=== PATIENT | female | born 1955 | race Caucasian/White ===

== ENCOUNTER 2018-09-17 02:20 | Outpatient (CLI) | payer OTHER, SELFPAY ==
--- NOTE | 2018-09-17 07:55 | DI.MAMMO_ITS ---
SYMPTOM/DIAGNOSIS: SCREENING, Z12.31 MAMMOGRAMS: Mammograms were interpreted according to the usual protocol including computer analysis with CAD system, tomosynthesis and C view imaging. The breasts are of moderate density. The examination is compared with previous examinations including 08/2016. There is a new irregular mass of the upper outer quadrant of the right breast with architectural distortion. There are new associated numerous pleamorphic microcalcifications including branching forms. The findings as described are highly suspicious for a new breast carcinoma, not present on previous examination of 08/2016. Additional mammographic views requested to include CC and MLO views of this area. Breast ultrasound requested as well. No other significant change in appearance of either breast. CONCLUSION: Findings highly suspicious for upper outer quadrant breast carcinoma of the right breast. Additional mammographic views and breast ultrasound requested for further characterization and to assess feasibility of ultrasound guided biopsy. Category 0. Breast density, Category B. MQSA ASSESSMENT OF FINDINGS: Incomplete: Needs additional imaging evaluation. Category 0. Patient will receive a letter notifying them of these results. BI-RADS category B. There are scattered areas of fibroglandular density.
--- NOTE | 2018-09-17 14:01 | DI.COMBO_ITS ---
SYMPTOMS/DIAGNOSIS: F/U ABNORMAL MAMMO, NEW AREA OF IRREGULARITY, ? MASS ADDITIONAL MAMMOGRAPHIC VIEWS, RIGHT BREAST, AND RIGHT BREAST ULTRASOUND: Additional images are interpreted according to the usual protocol including tomosynthesis and 2D imaging. Additional mammographic views of the right breast and right breast ultrasound are interpreted in conjunction. These examinations were obtained to evaluate suspicious mass at the upper outer quadrant of the right breast seen on today's mammogram. Additional mammographic views confirm a spiculated heterogeneous mass with multiple suspicious microcalcifications. Breast ultrasound shows a 23 mm in greatest diameter heterogeneous poorly defined mass with some posterior acoustic shadowing. Multiple calcifications are visible in the mass. There is mildly increased intralesional vascular flow. CONCLUSION: Findings highly suspicious for breast carcinoma as described above. Biopsy requested for confirmation, which may be obtained ultrasonographically. Category 5, breast density category B. MQSA ASSESSMENT OF FINDINGS: Highly suspicious of malignancy. Biopsy should be obtained. Category 5. Patient will receive a letter notifying them of these results. BI-RADS category B. There are scattered areas of fibroglandular density.
== END 2018-09-17 02:40 ==
PROVIDERS: PCP Family Medicine; Visit Provider Family Medicine
DX: Z12.31 Encounter for screening mammogram for malignant neoplasm of breast (principal); R92.8 Other abnormal and inconclusive findings on diagnostic imaging of breast
CPT/HCPCS: 76642; 77063; 77067

== ENCOUNTER 2018-12-24 01:47 | Outpatient (CLI) | payer OTHER, SELFPAY ==
[2018-12-24 07:28] LABS: Abs Immature Grans 0.03 k/cumm (0.0-0.09); Absolute Basophil Count 0.01 k/cumm (0.0-0.2); Absolute Lymphocyte Count 0.09 k/cumm (1.2-3.4); Absolute Monocyte Count 0.02 k/cumm (0.11-0.7); Basophils % 5.3; Immature Grans % 15.8; Lymphocytes % 47.4; Mean Corp. HGB Concentration 34.4 g/dL (32.0-36.0); Mean Corpuscular Hemoglobin 31.4 pg (27.0-33.0); Mean Corpuscular Volume 91.4 fL (80-95); Mean Platelet Volume 9.6 fL (8.0-11.0); Monocytes % 10.5; RBC Distribution Width 13.5 % (11.7-14.6)
[2018-12-24 09:37] LABS: Absolute Neutrophil Count 0.04 k/cumm (1.2-6.7); HCT 19.2 % (36.0-46.0); HGB 6.6 g/dL (12.0-15.5)
[2018-12-24 09:40] LABS: Anisocytosis 2+; Hypochromasia 2+; Microcytosis 1+; Platelet Count 84 x1000/uL (130-400)
[2018-12-24 09:41] LABS: Poikilocytes 2+
[2018-12-24 09:42] LABS: White Blood Cell Count 0.19 k/cumm (4.4-10.8)
== END 2018-12-24 02:07 ==
PROVIDERS: PCP Family Medicine; Visit Provider Internal Medicine Medical Oncology
DX: C50.911 Malignant neoplasm of unspecified site of right female breast (principal); Z17.0 Estrogen receptor positive status [ER+]
CPT/HCPCS: 36415; 85025

== ENCOUNTER 2019-08-19 03:14 | Outpatient (CLI) | payer OTHER, SELFPAY ==
[2019-08-19 13:49] LABS: Absolute Basophil Count 0.01 k/cumm (0.0-0.2); Absolute Eosinophil Count 0.09 k/cumm (0.0-0.7); Absolute Lymphocyte Count 0.55 k/cumm (1.2-3.4); Absolute Monocyte Count 0.34 k/cumm (0.11-0.7); Absolute Neutrophil Count 3.25 k/cumm (1.2-6.7); Basophils % 0.2; Eosinophils % 2.1; HCT 36.5 % (36.0-46.0); HGB 12.6 g/dL (12.0-15.5); Mean Corp. HGB Concentration 34.5 g/dL (32.0-36.0); Mean Corpuscular Volume 98.4 fL (80-95); Neutrophils % 76.7; Platelet Count 172 x1000/uL (130-400); RBC 3.71 m/cumm (4.00-5.20); RBC Distribution Width 13.3 % (11.7-14.6); White Blood Cell Count 4.24 k/cumm (4.4-10.8)
[2019-08-19 14:33] LABS: ALT 21 U/L (14-59); AST 20 U/L (15-37); Albumin 3.9 g/dL (3.4-5.0); Alkaline Phosphatase 97 U/L (46-116); Anion Gap 9.7 mmol/L (3-11); BUN 12 mg/dL (7-18); CO2 26.3 mmol/L (21.0-32.0); CREATININE 0.81 mg/dL (0.55-1.02); Calcium 9.4 mg/dL (8.5-10.1); Chloride 104 mmol/L (98-107); Glucose 117 mg/dL (74-106); Potassium 3.7 mmol/L (3.5-5.1); Sodium 140 mmol/L (136-145); Total Protein 6.4 g/dL (6.4-8.2)
== END 2019-08-19 03:34 ==
PROVIDERS: PCP Family Medicine; Visit Provider Internal Medicine Medical Oncology
DX: C50.411 Malignant neoplasm of upper-outer quadrant of right female breast (principal); Z17.0 Estrogen receptor positive status [ER+]
CPT/HCPCS: 36415; 80053; 85025

== ENCOUNTER 2020-03-12 12:57 | Outpatient (RCR) | payer OTHER, SELFPAY ==
[2020-03-12] MEDS: Denosumab 60 MG/ML SYR SC (14:28)
== END 2020-04-08 23:59 | disposition home or self-care (01) ==
LOC: INF 12:57
PROVIDERS: PCP Family Medicine; Visit Provider Internal Medicine
DX: M81.8 Other osteoporosis without current pathological fracture (principal); Z79.811 Long term (current) use of aromatase inhibitors
CPT/HCPCS: 96372; J0897

== ENCOUNTER 2020-06-28 03:18 | Outpatient (CLI) | payer OTHER, SELFPAY ==
[2020-06-28 09:05] LABS: Abs Immature Grans 0.01 10^3/uL (0.0-0.06); Absolute Basophil Count 0.02 10^3/uL (0.0-0.2); Absolute Eosinophil Count 0.06 10^3/uL (0.0-0.7); Absolute Lymphocyte Count 0.83 10^3/uL (1.2-3.4); Absolute Monocyte Count 0.32 10^3/uL (0.1-0.8); Absolute Neutrophil Count 3.12 10^3/uL (1.2-6.7); Basophils % 0.5; Eosinophils % 1.4; HCT 38.2 % (36.0-46.0); Immature Grans % 0.2; MCH 33.5 pg (27.0-33.0); MCV 98.5 fL (80-95); MPV 10.2 fL (8.0-11.0); Monocytes % 7.3; Neutrophils % 71.6; Nucleated RBC 0 %; Platelet Count 148 10^3/uL (130-400); RBC 3.88 10^6/uL (3.93-5.22); RDW 13.3 % (11.7-14.6); RDW-SD 48.7 fL; WBC 4.36 10^3/uL (4.4-10.8)
[2020-06-28 09:17] LABS: ALT 25 U/L (14-59); AST 23 U/L (15-37); Albumin 3.8 g/dL (3.4-5.0); Alkaline Phosphatase 60 U/L (46-116); Anion Gap 6.2 mmol/L (3-11); BUN 10 mg/dL (7-18); Bilirubin, Total 1.1 mg/dL (0.2-1.0); CO2 28.8 mmol/L (21.0-32.0); CREATININE 0.8 mg/dL (0.55-1.02); Calcium 8.9 mg/dL (8.5-10.1); Chloride 107 mmol/L (98-107); Glucose 110 mg/dL (74-106); Potassium 3.9 mmol/L (3.5-5.1); Sodium 142 mmol/L (136-145); Total Protein 6.7 g/dL (6.4-8.2)
== END 2020-06-28 03:19 | disposition home or self-care (01) ==
LOC: LBO 03:19
PROVIDERS: PCP Family Medicine; Visit Provider Internal Medicine Medical Oncology
DX: C50.411 Malignant neoplasm of upper-outer quadrant of right female breast (principal); Z17.0 Estrogen receptor positive status [ER+]; R53.82 Chronic fatigue, unspecified
CPT/HCPCS: 36415; 80053; 85025

== ENCOUNTER 2020-09-26 11:00 | Outpatient (RCR) | payer OTHER, SELFPAY ==
[2020-09-26] MEDS: Denosumab 60 MG/ML SYR SC (14:23)
== END 2020-10-09 23:59 | disposition home or self-care (01) ==
LOC: INF 11:00
PROVIDERS: PCP Family Medicine; Visit Provider Internal Medicine
DX: M81.0 Age-related osteoporosis without current pathological fracture (principal)
CPT/HCPCS: 96372; J0897

== ENCOUNTER 2020-11-03 07:26 | Emergency (ER) | payer OTHER, SELFPAY ==
[2020-11-03] VITALS (44 sets, daily range): BP systolic 125–179; BP diastolic 56–119; PULSE 55–74; RESP 10–24; TEMP 36.3; O2SAT 98–100
--- NOTE | 2020-11-03 07:15 | RT.EKG_ITS ---
APPROVED REPORT Exam: Resting ECG Reason for Exam: ekg Patient Location: E HR:66 bpm ECG Measurements Heart Rate 66 AXIS MD 171 P 60 QRSd 87 QRS 42 QT 417 T 41 QTc 437 Conclusion Sinus rhythm...normal P axis, V-rate 60- 99 Probable left atrial enlargement...P >50mS, <-0.10mV V1. Sinus. No STEMI. I have reviewed and interpreted ECG and agree with software generated interpretation.
--- NOTE | 2020-11-03 07:45 | DI.RAD_ITS ---
Exam(s) XR CHEST 2V PA LATERAL EXAM: XR CHEST 2V PA LATERAL CLINICAL HISTORY: CP. TECHNIQUE: 2D digital imaging was performed. COMPARISON: No exams were available for comparison FINDINGS: Heart size is normal. The mediastinum is not widened. Lungs are clear. No infiltrates nor pleural effusions. IMPRESSION: No acute pulmonary findings. DATA REPOSITORY: RADIATION DOSE DELIVERED:
--- NOTE | 2020-11-03 07:51 | ED.GENADUL_ITS ---
Discharge Plan Disposition Patient Disposition: HOME Condition: Stable Discharge Details Clinical Impression: Chest pain, Thickening of skin of breast Primary Care Provider: Griselda Mojica ED Provider: Pratima Dhaliwal Home Meds and New Rx's Prescriptions: Continued omeprazole 20 MG capsule,delayed release(DR/EC) 20 mg PO PRN RF: 0 letrozole 2.5 mg tablet 2.5 mg PO DAILY RF: 0 Discharge Instructions Instructions: Chest Pain (ED) Additional Instructions: Your imaging and labs are reassuring here today. Your history and exam is most concerning for a muscular cause of your discomfort. Please encourage hydration please encourage deep breathing. Please avoid heavy lifting as may cause increased discomfort. Encourage ambulation. May also try topical options such as lidocaine or Salonpas patches or heat/ice. Please follow-up with your primary care in 1 week for reevaluation As we discussed, there is concerning findings on your CT scan for possible recurrence of your breast cancer. Alternatively, this may be to your previous radiation. Please follow-up with your oncology team Thursday to discuss findings and keep your upcoming mammogram appointment. If you develop increased pain, shortness of breath, inability stay hydrated or other new/worsening symptoms care urgently once again. Referrals: Griselda Mojica MD [Primary Care Provider] - Discharge Data Discharge Date/Time-TO BE ENTERED AT DEPARTURE: 11/03/20 12:45 Medical Decision Making The patient is a pleasant 55-year-old female, accompanied by her , with chief complaint of chest pain. She reports the pain began when stretching this morning. States that she was turned towards the left with her arm extended back stretching her chest when she had a sudden onset of chest pain that radiates into her back pain. Pain has been present since with deep inspiration, coughing and moving. Denies any nausea or vomiting. Patient reports that she is has not had pain like this historically. She is typically very active, states that she did have a lot of heavy lifting yesterday at work. For that she had no pain with her physical exertion yesterday. Denies feeling short of breath aside from having some discomfort with the deep inspiration. This limits her ability to feel like she is taking a deep breath. No history of DVT. No personal family history of aortic disease. On exam, patient appears uncomfortable with movement. Her vital signs are stable and she is oxygenating 100%. She is 2+ distal pulses in all extremities. Abdomen is benign. She does have some discomfort over the left anterior chest wall. Lungs are clear. No pain elicited with muscular stress of the left-sided chest wall. Patient discussed differential. With the sudden onset of discomfort radiating into her back, I am concerned for aortic dissection. She is hemodynamically stable at this time. Plan for CTA. Her history is more consistent with PE although is soft, differential. Patient's primarily concern for ACS. However, I do find this less likely. Will screen caution. She does not have any infectious symptoms nor does this sound to be esophageal mediated. CTA reviewed by radiologist: FINDINGS: Pulmonary arteries: No evidence of pulmonary embolus to the segmental level. Aorta: No aneurysm of the aorta. No dissection of the aorta. Lungs: Unremarkable. No consolidation. No masses. Pleural spaces: Mild pleural thickening in the right upper lobe. Series 4, image 21 and adjacent images. This could represent metastatic disease.. Heart: Unremarkable. No cardiomegaly. No pericardial effusion. Mediastinal space: Moderate hiatal hernia Lymph nodes: Unremarkable. No enlarged lymph nodes. Bones/joints: Unremarkable. No acute fracture. Soft tissues: Asymmetric skin thickening in the right breast. Increased soft tissue densities in the right breast. Recommend further evaluation to rule out right breast carcinoma. IMPRESSION: 1. Asymmetric skin thickening in the right breast. Increased soft tissue densities in the right breast. Recommend further evaluation to rule out right breast carcinoma. 2. No evidence of pulmonary embolus to the segmental level. 3. Mild pleural thickening in the right upper lobe. Series 4, image 21 and adjacent images. This could represent metastatic disease.. Labs reviewed. No leukocytosis. Stable H&H. No significant abnormality on CMP. Troponin within normal limits. I discussed the findings with the patient. She reports that she is routinely followed by her oncology and general surgery team. Is scheduled to have a mammogram in 2 weeks. However, she will message them through her my [facility] portal. I did advise that she follow-up as soon as possible for this concerning finding. Patient has had chemotherapy as well as radiation to this area, questioning if some of this could be radiation mediated as she has had normal exams recently. Repeat troponin remains less than 0.05. Patient I discussed likely differential of musculoskeletal source. Encourage hydration. Encourage deep breathing, will give an incentive spirometer. Advised that she may try topical options including heat/ice or topical patch to help with pain. Strict return precautions were discussed. She will follow-up regarding the question of me tastatic disease with her oncology team. Imaging was pushed [place], [place]. [place], [place] [facility] [place]vised f/u with PCP in one week. All of her questions and concerns were addressed and she is in agreement with this plan. HPI General Mode of arrival: ambulatory . Date/Time Provider Initiated Documentation: 11/03/20 07:51 . Limitations to Documentation: no limitations . Information obtained by: patient, family () and RN notes reviewed . History of Present Illness 65 year old F presents to the emergency department with the chief complaint of chest pain, described as moderate, with intensity rated at 1 (no pain at rest, increases with SOB, coughing). Quality is described as aching, and is localized to the chest. Patient reports radiation to back. Patient started experiencing this hour(s) (1) and it has been constant. Immobilization improves symptom(s), Movement worsens symptoms (cough, deep breathing) . Patient notes chest pain, cough (began with the sensation in her chest) and shortness of breath (feels like she cant get a deep breath); denies fever/chills, headaches, nausea/vomiting, rash, syncope and weakness. Patient did receive the following treatments prior to arrival, none Related Data Home Medications Medication Instructions Recorded Confirmed omeprazole 20 mg PO PRN 11/17/16 12/03/16 letrozole 2.5 mg PO DAILY 11/03/20 11/03/20 Allergies Allergy/AdvReac Type Severity Reaction Status Date / Time No Known Allergies Allergy Unverified 11/03/20 07:31 General Stated Complaint: Chest Pain SUDHEER: 2 Review of Systems Constitutional Constitutional: Reports as per HPI, Denies chills, Denies fever(s), Denies headache(s), Denies lethargy and Denies poor appetite Eyes Eyes: Denies change in vision ENT Ears, Nose, Mouth, and Throat: Denies dizziness and Denies headache(s) Cardiovascular Cardiovascular: Reports as per HPI, Denies dyspnea and Denies dyspnea on exertion Respiratory Respiratory: Reports as per HPI, Denies chest congestion, Denies cough, Denies pain on inspiration, Denies pain with cough, Denies dyspnea, Denies dyspnea on exertion and Denies wheezing Gastrointestinal Gastrointestinal: Reports as per HPI, Denies abdominal pain, Denies diarrhea, Denies nausea and Denies vomiting Musculoskeletal Musculoskeletal: Reports as per HPI and Denies back pain Integumentary/Breasts Skin/Breast: Reports as per HPI and Denies rash Neurologic Neurologic: Reports as per HPI, Denies dizziness and Denies headache(s) Allergic/Immunologic Allergic/Immunologic: Denies wheezing [facility] Medical History (Updated 11/03/20 @ 11:50 by ANANYA Spencer) Basal cell carcinoma, face Gastroesophageal reflux disease Obesity Osteopenia Perforated ear drum Surgical History Colonoscopy - MAC (12/03/16) Hysterectomy, Laparoscopic Supracervical Social History (Updated 12/24/17 @ 16:19 by Lawanda Nguyen NP) Smoking/Tobacco Use Status: Former Tobacco Use Smoking risk assessment performed?: Yes Alcohol Intake: current Alcohol Intake frequency: 0-2 drinks per day Alcohol type: hard liquor Drug use: Never Substance use type: does not use Household members: spouse 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 What type of physical activity do you participate in: walking Frequency: daily Do you feel safe at home: Yes Do you feel safe in your relationship?: Yes Exam Const General: cooperative, healthy appearing, uncomfortable (uncomfortable with movement), no acute distress and well developed Nutritional Appearance: average body habitus and well nourished Orientation: alert, awake and oriented x3 HENMT Head: normal to inspection Ears: hearing grossly normal bilaterally Mouth: moist mucous membranes Chest Chest: normal inspection of the chest, normal palpation of entire chest wall, no crepitus and tenderness (left anterior chest wall) Resp Effort & Inspection: normal respiratory effort, able to speak in complete sentences and no respiratory distress Auscultation: clear to auscultation bilaterally, no rales, no rhonchi and no wheezes Cardio Rate: regular rate Rhythm: regular rhythm Heart Sounds: S1 normal and S2 normal GI Inspection: normal to inspection, no edema and non-distended Palpation: soft, no hepatosplenomegaly, not firm, no guarding, not rigid and nontender Auscultation: normal bowel sounds Skin General skin exam: no rashes or lesions noted Trauma: no lacerations or abrasions Neuro General: patient alert, patient awake and patient oriented x3 Cognition: normal cognition Speech: speech normal Gait: normal gait Extrem General: normal to inspection, capillary refill normal, no pedal edema, no calf tenderness, normal gait and other (2+ distal pulses in all extremities) Psych Appearance: grossly normal and well kempt Mental Status: mental status grossly normal Speech and Movement: speech and movement normal Course Vital Signs Vital signs: Vital Signs Temperature 36.3 C L 11/03/20 07:29 Pulse 74 11/03/20 07:29 Respiratory Rate 18 11/03/20 07:29 Blood Pressure 179/77 H 11/03/20 07:29 Pulse Oximetry 100 11/03/20 07:29 Temperature 36.3 C L 11/03/20 07:29 Temperature Source Temporal Artery Scan 11/03/20 07:29 Pulse 74 11/03/20 07:29 Respiratory Rate 18 11/03/20 07:33 Respiratory Effort Non-Labored 11/03/20 07:33 Respiratory Depth Normal 11/03/20 07:33 Respiratory Pattern Normal 11/03/20 07:33 Blood Pressure 179/77 H 11/03/20 07:29 Blood Pressure Position Sitting 11/03/20 07:29 Pulse Oximetry 100 11/03/20 07:29 Oxygen Delivery Method Room Air 11/03/20 07:29 Oxygen Flow Rate 0 11/03/20 07:29 Pain Level 0 11/03/20 07:29
[2020-11-03 08:15] LABS: Abs Immature Grans 0.01 10^3/uL (0.0-0.06); Absolute Basophil Count 0.02 10^3/uL (0.0-0.2); Absolute Eosinophil Count 0.08 10^3/uL (0.0-0.7); Absolute Lymphocyte Count 0.93 10^3/uL (1.2-3.4); Absolute Monocyte Count 0.35 10^3/uL (0.1-0.8); Absolute Neutrophil Count 2.31 10^3/uL (1.2-6.7); Basophils % 0.5; Eosinophils % 2.2; HCT 41.7 % (36.0-46.0); Immature Grans % 0.3; Lymphocytes % 25.1; MCH 33.7 pg (27.0-33.0); MCHC 33.6 % (32.0-36.0); MCV 100.5 fL (80-95); MPV 10.3 fL (8.0-11.0); Monocytes % 9.5; Neutrophils % 62.4; Nucleated RBC 0 %; Platelet Count 163 10^3/uL (130-400); RBC 4.15 10^6/uL (3.93-5.22); RDW 12.4 % (11.7-14.6); RDW-SD 46.9 fL
[2020-11-03 08:27] LABS: ALT 27 U/L (14-59); AST 24 U/L (15-37); Alkaline Phosphatase 65 U/L (46-116); Anion Gap 7.2 mmol/L (3-11); BUN 12 mg/dL (7-18); CO2 27.8 mmol/L (21.0-32.0); CREATININE 0.8 mg/dL (0.55-1.02); Calcium 8.8 mg/dL (8.5-10.1); Chloride 107 mmol/L (98-107); Glucose 105 mg/dL (74-106); Magnesium 2.1 mg/dL (1.8-2.4); Potassium 4.1 mmol/L (3.5-5.1); Sodium 142 mmol/L (136-145); Total Protein 7.2 g/dL (6.4-8.2)
[2020-11-03 08:28] LABS: Troponin I < 0.05 ng/mL (<0.06)
--- NOTE | 2020-11-03 08:33 | DI.CT_ITS ---
Exam(s) CT THORAX ABDOMEN CTA EXAM: CT THORAX ABDOMEN CTA CLINICAL HISTORY: CP radiating into back. TECHNIQUE: Imaging Protocol: Axial computed tomography images with coronal and sagittal reformatted images were created and reviewed CONTRAST MATERIAL: Intravenous: Omnipaque 350 Contrast volume:100 ml Oral: None COMPARISON: No exams were available for comparison FINDINGS: CHEST: Findings in the right breast with asymmetric density and skin thickening which may be postsurgical an d post radiation LUNGS: There is subpleural density anterior segment right upper lobe which is probably related to rad iation therapy. There is a small 4 millimeter nodule posteriorly in the right upper lobe which is pr obably a benign granuloma. No other focal right lung findings nor significant left lung findings and no pleural effusions on either side. No significant findings in trachea and mainstem bronchi.. MEDIASTINUM: There is no hilar nor mediastinal adenopathy. Visualized thyroid unremarkable.Prominent hiatal hernia. CARDIAC: Heart size is normal. There is no pericardial effusion. AORTA: Caliber of the thoracic aorta is within normal limits.There is no evidence of aortic dissectio n. ABDOMEN: There is no evidence of abdominal aortic aneurysm nor dissection.There is no aneurysmal dilatation of the common iliac arteries.The celiac and superior mesenteric arteries are patent. There is no ascites. LIVER: Multiple hypodensities are seen in the liver which have the appearance of cysts. The largest of these measures 4 x 3 cm adjacent to the gallbladder fossa GALLBLADDER/BILIARY: No obvious gallbladder pathology. CBD is not dilated. PANCREAS: No evidence of pancreatic mass nor dilatation of the pancreatic duct. SPLEEN: Spleen is not enlarged. There are no intrasplenic lesions. Splenic and portal veins are roberson nt. ADRENALS: There are no significant adrenal masses. KIDNEYS: No cysts evident. No calculi nor hydronephrosis. No solid renal masses. ABDOMINAL AORTA: The abdominal aorta is not enlarged. LYMPH NODES: There is no retroperitoneal nor para-aortic adenopathy. No obvious mesenteric masses. ABDOMINAL WALL: No evidence of significant anterior abdominal wall hernia. GI: There is no evidence of bowel obstruction, free air, nor abscess. PELVIS: The pelvis was not scanned IMPRESSION: 1. Appearance of the right breast is most probably postsurgical for malignancy and post radiation and findings in the subpleural anterior segment right upper lobe are most probably post radiation change s. There also appears to be a small benign granuloma in the right upper lobe. No ominous pulmonary nodules and no pleural effusions nor intrathoracic adenopathy. 2. Multiple cysts in the liver. These are doubtful for metastatic disease. The largest of these cys ts measures 4.3 cm, this being adjacent to the gallbladder fossa. 3. No mesenteric masses. No ascites. RADIATION DOSE DELIVERED: 625.29mGy.cm Total DLP DATA REPOSITORY: All CT scans at this facility are submitted to the National Radiology Data Registry (NRDR) Dose Index Registry (DIR) with the [employer] (ACR). RADIATION OPTIMIZATION: All CT scans at this facility use at least one of these dose optimization te chniques: automated exposure control; mA and/or kV adjustment per patient size (includes targeted exa ms where dose is matched to clinical indication); or iterative reconstruction.
[2020-11-03] MEDS: Omnipaque 350 MG/ML 100 ML BTL IJ (08:44)
--- NOTE | 2020-11-03 09:36 | DI.VRAD_ITS ---
PROCEDURE INFORMATION: Exam: XR Chest Exam date and time: 11/03/2020 8:48 AM Age: 65 years old Clinical indication: Other: Cp TECHNIQUE: Imaging protocol: XR of the chest. Views: 2 views. COMPARISON: CT THORAX ABDOMEN CTA 11/03/2020 8:22 AM FINDINGS: Lungs: Unremarkable. No consolidation. Pleural spaces: Unremarkable. No pleural effusion. No pneumothorax. Heart/Mediastinum: Unremarkable. No cardiomegaly. Bones/joints: Unremarkable. IMPRESSION: No acute findings. Dictated and Authenticated by: Frank Coleman MD. Ordering:SABINE Andujar MD
--- NOTE | 2020-11-03 09:36 | DI.VRAD_ITS ---
PROCEDURE INFORMATION: Exam: CTA Chest With Contrast Exam date and time: 11/03/2020 8:06 AM Age: 65 years old Clinical indication: Other: Chest pain radiating to back; Prior surgery; Surgery type: Right breast lumpectomy TECHNIQUE: Imaging protocol: Computed tomographic angiography of the chest with contrast. 3D rendering (Not supervised by radiologist): MIP and/or 3D reconstructed images were created by the technologist. Radiation optimization: All CT scans at this facility use at least one of these dose optimization techniques: automated exposure control; mA and/or kV adjustment per patient size (includes targeted exams where dose is matched to clinical indication); or iterative reconstruction. Contrast material: [id number]; Contrast volume: 99 ml; Contrast route: INTRAVENOUS (IV); COMPARISON: No relevant prior studies available. FINDINGS: Pulmonary arteries: No evidence of pulmonary embolus to the segmental level. Aorta: No aneurysm of the aorta. No dissection of the aorta. Lungs: Unremarkable. No consolidation. No masses. Pleural spaces: Mild pleural thickening in the right upper lobe. Series 4, image 21 and adjacent images. This could represent metastatic disease.. Heart: Unremarkable. No cardiomegaly. No pericardial effusion. Mediastinal space: Moderate hiatal hernia Lymph nodes: Unremarkable. No enlarged lymph nodes. Bones/joints: Unremarkable. No acute fracture. Soft tissues: Asymmetric skin thickening in the right breast. Increased soft tissue densities in the right breast. Recommend further evaluation to rule out right breast carcinoma. IMPRESSION: 1. Asymmetric skin thickening in the right breast. Increased soft tissue densities in the right breast. Recommend further evaluation to rule out right breast carcinoma. 2. No evidence of pulmonary embolus to the segmental level. 3. Mild pleural thickening in the right upper lobe. Series 4, image 21 and adjacent images. This could represent metastatic disease.. THIS REPORT CONTAINS FINDINGS THAT MAY BE CRITICAL TO PATIENT CARE. The findings were verbally communicated via telephone conference with YEN GRIFFIN at 9:35 AM EDT on 11/03/2020. The findings were acknowledged and understood. She states the patient has had right breast cancer in the past PROCEDURE INFORMATION: Exam: CT Angiography Abdomen With Contrast Exam date and time: 11/03/2020 8:06 AM Age: 65 years old Clinical indication: Other: Chest pain radiating to back; Prior surgery; Surgery type: Right breast lumpectomy TECHNIQUE: Imaging protocol: Computed tomographic angiography images of the abdomen with intravenous contrast material. 3D rendering (Not supervised by radiologist): MIP and/or 3D reconstructed images were created by the technologist. Radiation optimization: All CT scans at this facility use at least one of these dose optimization techniques: automated exposure control; mA and/or kV adjustment per patient size (includes targeted exams where dose is matched to clinical indication); or iterative reconstruction. Contrast material: [id number]; Contrast volume: 99 ml; Contrast route: INTRAVENOUS (IV); COMPARISON: No relevant prior studies available. FINDINGS: Aorta: No aneurysm of the aorta. No dissection of the aorta. Celiac trunk and mesenteric arteries: No occlusion or significant stenosis. Renal arteries: No occlusion or significant stenosis. Liver: Multiple low-attenuation areas in the liver. Larger ones are consistent with simple cysts Gallbladder and bile ducts: Normal. No calcified stones. No ductal dilation. Pancreas: Normal. No ductal dilation. Spleen: Normal. No splenomegaly. Adrenals: Normal. No mass. Kidneys and ureters: Normal. No hydronephrosis. Stomach and bowel: Unremarkable. No obstruction. No mucosal thickening. Lymph nodes: Unremarkable. No enlarged lymph nodes. Intraperitoneal space: Unremarkable. No free air. No significant fluid collection. Bones/joints: Unremarkable. No acute fracture. No dislocation. Soft tissues: Unremarkable. IMPRESSION: 1. No aneurysm of the aorta. 2. No dissection of the aorta. Dictated and Authenticated by: Frank Coleman MD. Ordering:SABINE Andujar MD
[2020-11-03 11:19] LABS: Troponin I < 0.05 ng/mL (<0.06)
== END 2020-11-03 12:45 | disposition home or self-care (01) ==
PROVIDERS: Emergency Provider Physician Assistant; PCP Family Medicine
DX: R07.9 Chest pain, unspecified (principal); R92.8 Other abnormal and inconclusive findings on diagnostic imaging of breast; M54.9 Dorsalgia, unspecified
CPT/HCPCS: 36415; 71275; 74175; 80053; 93005; 99285; 71046; 83735; 84484; 85025; 93010; 99284; J3490

== ENCOUNTER 2021-03-28 01:26 | Outpatient (RCR) | payer OTHER, SELFPAY ==
[2021-03-28] MEDS: Denosumab 60 MG/ML SYR SC (14:02)
== END 2021-04-08 23:59 | disposition home or self-care (01) ==
LOC: INF 01:26
PROVIDERS: PCP Family Medicine; Visit Provider Internal Medicine
DX: M81.0 Age-related osteoporosis without current pathological fracture (principal)
CPT/HCPCS: 96372; J0897

== ENCOUNTER 2021-09-26 02:59 | Outpatient (RCR) | payer OTHER, SELFPAY ==
[2021-09-26 14:24] LABS: ALT 26 U/L (14-59); AST 22 U/L (15-37); Albumin 3.9 g/dL (3.4-5.0); Alkaline Phosphatase 63 U/L (46-116); Anion Gap 7.5 mmol/L (3-11); BUN 12 mg/dL (7-18); Bilirubin, Total 0.8 mg/dL (0.2-1.0); CO2 29.5 mmol/L (21.0-32.0); CREATININE 0.8 mg/dL (0.55-1.02); Calcium 9.2 mg/dL (8.5-10.1); Chloride 105 mmol/L (98-107); Glucose 132 mg/dL (74-106); Potassium 3.5 mmol/L (3.5-5.1); Sodium 142 mmol/L (136-145); Total Protein 6.8 g/dL (6.4-8.2)
[2021-09-26] MEDS: Denosumab 60 MG/ML SYR SC (14:30)
== END 2021-10-09 23:59 | disposition home or self-care (01) ==
LOC: INF 02:59
PROVIDERS: PCP Family Medicine; Visit Provider Internal Medicine
DX: C50.411 Malignant neoplasm of upper-outer quadrant of right female breast (principal); Z17.0 Estrogen receptor positive status [ER+]; M81.0 Age-related osteoporosis without current pathological fracture
CPT/HCPCS: 36415; 80053; 96372; J0897

== ENCOUNTER 2021-10-25 09:49 | Outpatient (REF) | payer OTHER, SELFPAY ==
[2021-10-25 13:19] LABS: HCT 39.9 % (36.0-46.0); HGB 13.8 g/dL (11.2-15.7); MCH 33.3 pg (27.0-33.0); MCHC 34.6 % (32.0-36.0); MCV 96 fL (80-95); Platelet Count 166 10^3/uL (130-400); RBC 4.14 10^6/uL (3.93-5.22); RDW 12.4 % (11.7-14.6); RDW-SD 43.9 fL; WBC 3.46 10^3/uL (4.4-10.8)
[2021-10-25 13:53] LABS: Calculated LDL 125 mg/dL (<100); Cholesterol 232 mg/dL (<200); HDL Cholesterol 92 mg/dL (40-60); TSH (W/Ref FT4) 3.68 uIU/mL (0.36-3.74); Triglyceride 75 mg/dL (<150); Vitamin B12 491 pg/mL (193-986)
[2021-10-28 05:26] LABS: Vitamin D 25 Total 47.6 ng/mL (30-100)
[2021-10-28 09:30] LABS: HIV-1/2 Ag & Ab Screen Negative (Negative)
== END 2021-10-25 09:50 | disposition home or self-care (01) ==
LOC: NCHCN 09:49
PROVIDERS: PCP Family Medicine; Visit Provider Family Medicine
DX: R53.83 Other fatigue (principal); R63.5 Abnormal weight gain; M81.0 Age-related osteoporosis without current pathological fracture; Z13.220 Encounter for screening for lipoid disorders; Z11.4 Encounter for screening for human immunodeficiency virus [HIV]
CPT/HCPCS: 80061; 82306; 85027; 87389; 82607; 83036; 84443

== ENCOUNTER 2022-03-27 01:21 | Outpatient (RCR) | payer OTHER, SELFPAY ==
[2022-03-27 14:23] LABS: ALT 26 U/L (14-59); AST 24 U/L (15-37); Albumin 3.9 g/dL (3.4-5.0); Alkaline Phosphatase 71 U/L (46-116); Anion Gap 6.7 mmol/L (3-11); BUN 14 mg/dL (7-18); Bilirubin, Total 0.8 mg/dL (0.2-1.0); CO2 29.3 mmol/L (21.0-32.0); CREATININE 0.9 mg/dL (0.55-1.02); Calcium 9.3 mg/dL (8.5-10.1); Chloride 104 mmol/L (98-107); Estimated GFR 70.95 (mL/min/1.73m2); Glucose 120 mg/dL (74-106); Potassium 4.2 mmol/L (3.5-5.1); Sodium 140 mmol/L (136-145); Total Protein 6.8 g/dL (6.4-8.2)
[2022-03-27] MEDS: Denosumab 60 MG/ML SYR SC (14:32)
== END 2022-04-08 23:59 | disposition home or self-care (01) ==
LOC: INF 01:21
PROVIDERS: Internal Medicine; PCP Family Medicine; Visit Provider Internal Medicine
DX: M81.0 Age-related osteoporosis without current pathological fracture (principal)
CPT/HCPCS: 36415; 80053; 96372; J0897

== ENCOUNTER 2022-10-15 03:26 | Outpatient (RCR) | payer OTHER, SELFPAY ==
[2022-10-15] MEDS: Calcium Carbonate *TUMS* 500 MG CHEW PO (13:10)
[2022-10-15] MEDS: Normal Saline Flush 10 ML SYR IVP (13:12)
== END 2022-11-08 23:59 | disposition home or self-care (01) ==
LOC: INF 03:26
PROVIDERS: PCP Family Medicine; Visit Provider Nurse Practitioner Acute Care
DX: M81.0 Age-related osteoporosis without current pathological fracture (principal)
CPT/HCPCS: 96365; J3489

== ENCOUNTER 2022-12-16 18:16 | Outpatient (REF) | payer OTHER, SELFPAY ==
[2022-12-16 16:28] LABS: TSH (W/Ref FT4) 4.12 uIU/mL (0.36-3.74); Vitamin B12 908 pg/mL (193-986)
[2022-12-16 16:32] LABS: Folate > 20.0 ng/mL (8.6-20.0)
[2022-12-16 16:57] LABS: FREE T4 0.99 ng/dL (0.76-1.46); NT-proBNP 474 pg/mL (<300)
== END 2022-12-16 18:17 | disposition home or self-care (01) ==
LOC: NCHCN 18:16
PROVIDERS: PCP Family Medicine; Visit Provider Family Medicine
DX: G62.0 Drug-induced polyneuropathy (principal); R41.3 Other amnesia; R53.83 Other fatigue
CPT/HCPCS: 82607; 82746; 83880; 84439; 84443

== ENCOUNTER → 2023-01-07 02:39 | Outpatient (CLI) | payer OTHER, SELFPAY ==
--- NOTE | 2023-01-07 13:47 | DI.US_ITS ---
APPROVED REPORT EXAM: Comprehensive 2D, Doppler, and color-flow Echocardiogram Patient Location: Out-Patient Sound Art Instructor: Lizbeth Forbes RDCS (AE) Indications: Dyspnea on exertion, palpitations, s/p chemo fro breast cancer Other Information Study Quality: Good Conclusion Normal left ventricular wall thickness and chamber size. Ejection fraction is 60%. Wall motion is n ormal diastolic function is normal for age Normal right ventricular size and systolic function Both atria are normal in size There is no structural or hemodynamically significant valvular disease Estimated right ventricular systolic pressure is 27 mmHg Wall motion Left Ventricle The left ventricle is normal size. The left ventricular systolic function is normal. The left ventric ular ejection fraction is within the normal range. There is normal left ventricular wall thickness. T here is normal LV segmental wall motion. There is no ventricular septal defect visualized. LVEF is 6 0%. Right Ventricle The right ventricle is normal size. The right ventricular systolic function is normal. Atria The left atrium size is normal. The right atrium size is normal. The interatrial septum is intact wit h no evidence for an atrial septal defect. Aortic Valve The aortic valve is normal in structure. Aortic valve is trileaflet. There is no aortic valvular jessica nosis. No aortic regurgitation is present. Mitral Valve The mitral valve is normal in structure. No evidence of mitral valve stenosis. Trace mitral regurgita tion. Tricuspid Valve The tricuspid valve is normal in structure. There is no tricuspid valve stenosis. Trace tricuspid reg urgitation. The RVSP is 27.0_ mmHg. Pulmonic Valve The pulmonary valve is normal in structure. There is no pulmonic valvular stenosis. Trace pulmonic re gurgitation. Great Vessels The aortic root is normal in size. The ascending aorta is normal in size. IVC is normal in size and c ollapses >50% with inspiration. Pericardium There is no pericardial effusion. 2D Dimensions IVSD d PLAX 0.89 cm F: 0.6-1.0 Ao Root d 2.56 cm F: 2.7 - 3.3 LVPW d PLAX 0.90 cm F: 0.6 - 1.0 Ao Asc Diam d 3.09 cm F: 2.3 - 3.1 LVID d PLAX 4.47 cm F: 3.8 - 5.2 LVDs 2.98 cm F: 2.2 - 3.5 LV EF Teichholz 62.1 % FS 33.27 % LV EDV (Teich) 90.8 mL LV ESV (Teich) 34.4 mL M-Mode TAPSE 2.62 cm (M/F) >1.7 Auto EF LV EDV A4C 100.4 mL LV EDV A2C 122.2 mL LV EDV BP 109.2 mL LV ESV A4C 42.2 mL LV ESV A2C 51.3 mL LV ESV BP 46.2 mL LVEF(%) A4C 57.9 % LVEF(%) A2C 58.0 % LVEF(%) BP 57.6 % LV SV A4C 58.1 ml LV SV A2C 70.9 ml LV SV BP 62.9 ml LV CO A4C 3.6 L/min LV CO A2C 4.5 L/min LV CO BP 4.0 L/min HR A4C 61.44 BPM HR A2C 63.84 BPM LV EDV Index (BP) LV Strain Long Pk Overal Avg (s) 20.50 RV Strain Global Peak Long. Strain A4C 12.95 Global Peak Long. Strain A4C FW 12.02 LA Volume LA Length A4C 4.3 cm LA Length A2C 5.2 cm LA Area A4C s 13.77 cm2 LA Area A2C s 17.81 cm2 LA Vol A4C A-L 37.40 mL LA Vol A2C A-L 51.31 mL LA Vol Biplane A-L 48.4 mL LA Vol/BSA A4C A-L LA Vol/BSA A2C A-L LA Vol/BSA BP A-L 27.6 mL/m2 LA Vol A4C MOD 35.9 mL LA Vol A2C MOD 46.7 mL LA Vol BP MOD 45.0 mL RA Volume RA Area A4C 7.3 cm2 RA ESV A4C (A-L) 12.9mL RA Vol/BSA A4C A-L RA Length A4C 3.5 cm RA ESV A4C (MOD) 12.7mL LV Diastology MV E' medial 0.108 (>0.07 m/s) MV E Vmax 0.86 (0.4-1.3 m/s) MV E/E' MED 7.96 (<14) MV A Vmax 0.90 (0.4-1.3 m/s) MV E' lateral 0.117 (>0.1 m/s) E/A Ratio 1.0 MV E/E' LAT 7.35 (<14) MV E' Average 0.112 m/s MV E/E'(average) 7.64 Aortic Valve AoV Vmax 1.75 m/s LVOT Vmax 1.37 m/s AoV Peak Grad 12.2 mmHg LVOT Peak Grad 7.5 mmHg AoV Area (Vmax) 2.19 cm2 LVOT VTI 0.306 m AoV VTI 0.399 m LVOT Mean Grad 4.2 mmHg AoV Mean Vinicius. 1.22 m/s LVOT SV 85.38 mL AoV Mean Grad 6.7 mmHg LVOT Diam s 1.85 cm AoV Area (VTI) 2.14 cm2 Velocity Ratio 0.78 Mitral Valve MV DT 210 (160-240 msec) MV Vmax TIPS 0.96 m/s MV Mean Grad 1.8 (<2mmHg) MV VTI 0.315 m Pulmonary Valve PV Vmax 1.09 (0.5-1.5 m/s) RVOT Vmax 0.79 m/s PV Peak Grad 4.7 mmHg RVOT Peak Gr. 2.5 mmHg PV Mean Vinicius 0.82 m/s RVOT VTI 0.183 m PV Mean Grad 2.9 mmHg RVOT Mean Gr. 1.3 mmHg Tricuspid Valve RA Pressure 3.00 mmHg TR Vmax 2.45 m/s TV S' 0.14 m/s TR Peak Grad 23.9 mmHg RVSP (TR) 27.0 mmHg
== END ==
PROVIDERS: PCP Family Medicine; Visit Provider Family Medicine
DX: R06.09 Other forms of dyspnea (principal); R00.2 Palpitations
CPT/HCPCS: 93306

== ENCOUNTER 2023-01-29 02:47 | Outpatient (CLI) | payer OTHER, SELFPAY ==
[2023-01-29 12:38] LABS: ALT 26 U/L (14-59); AST 24 U/L (15-37); Albumin 4.1 g/dL (3.4-5.0); Alkaline Phosphatase 50 U/L (46-116); Anion Gap 9.3 mmol/L (3-11); BUN 11 mg/dL (7-18); Bilirubin, Total 0.9 mg/dL (0.2-1.0); CO2 27.7 mmol/L (21.0-32.0); CREATININE 0.9 mg/dL (0.55-1.02); Calcium 9.3 mg/dL (8.5-10.1); Chloride 105 mmol/L (98-107); Estimated GFR 70.51 (mL/min/1.73m2); Glucose 75 mg/dL (74-106); Potassium 3.7 mmol/L (3.5-5.1); Sodium 142 mmol/L (136-145); Total Protein 6.9 g/dL (6.4-8.2)
== END 2023-01-29 02:48 | disposition home or self-care (01) ==
LOC: LBO 02:47
PROVIDERS: PCP Family Medicine; Visit Provider Internal Medicine Medical Oncology
DX: C50.411 Malignant neoplasm of upper-outer quadrant of right female breast (principal); Z17.0 Estrogen receptor positive status [ER+]
CPT/HCPCS: 36415; 80053

== ENCOUNTER 2023-04-22 13:23 | Outpatient (RCR) | payer OTHER, SELFPAY ==
[2023-04-22 13:59] LABS: CREATININE 0.8 mg/dL (0.55-1.02); Estimated GFR 81.21 (mL/min/1.73m2)
[2023-04-22] MEDS: Normal Saline Flush 10 ML SYR IVP (14:27)
== END 2023-05-10 23:59 | disposition home or self-care (01) ==
LOC: INF 13:23
PROVIDERS: Internal Medicine Medical Oncology; PCP Family Medicine; Visit Provider Nurse Practitioner Acute Care
DX: M81.0 Age-related osteoporosis without current pathological fracture (principal)
CPT/HCPCS: 36415; 96365; 82565; J3489

== ENCOUNTER 2023-04-30 12:56 | Outpatient (CLI) | payer OTHER, SELFPAY | END 2023-04-30 12:57 | disposition home or self-care (01) | PROVIDERS: PCP Family Medicine; Visit Provider Family Medicine | DX: R00.2 Palpitations (principal) | CPT/HCPCS: 93246 ==

== ENCOUNTER 2023-05-22 07:58 | Outpatient (CLI) | payer OTHER, SELFPAY ==
--- NOTE | 2023-05-22 08:44 | W.CARDEVENT ---
Date of service: 05/22/23 Time of Service: 08:44 Cardiac Event Recorder Referring Provider:: Griselda Mojica Indications:: Palpitations Cardiac Event Note: This is a cardiac event monitor. Patient was monitored for 12 days and 7 hours predominant rhythm was sinus. Average heart rate was 69. Minimum was 42, Maximum 143 There were rare ventricular ectopic beats. There were several ventricular triplet there were moderately frequent atrial premature beats, comprising 6% of totals There were multiple runs of supraventricular tachycardia, possibly atrial tachycardia, some of which appeared symptomatic. There was also excessive baseline artifact which made interpretation difficult There was no atrial fibrillation, no high-grade AV block, no pauses greater than 3 seconds. Patient symptoms were reported, which at times correlated with SVT, other times to no dysrhythmia
== END 2023-05-22 07:59 | disposition home or self-care (01) ==
LOC: CARDOPNVT 07:58
PROVIDERS: PCP Family Medicine; Visit Provider Internal Medicine Cardiovascular Disease
DX: R00.2 Palpitations (principal); I49.1 Atrial premature depolarization; I47.10 Supraventricular tachycardia, unspecified

== ENCOUNTER 2023-05-28 10:47 | Outpatient (CLI) | payer OTHER, SELFPAY ==
--- NOTE | 2023-05-28 11:00 | RT.EKG_ITS ---
APPROVED REPORT Exam: Resting ECG Reason for Exam: MALIGNANT NEOPLASM Patient Location: O HR:59 bpm ECG Measurements Heart Rate 59 AXIS DE 177 P 58 QRSd 103 QRS 54 QT 435 T 41 QTc 431 Conclusion Sinus rhythm...normal P axis, V-rate 50- 99 Atrial premature complex...SV complex w/ short R-R interval
== END 2023-05-28 10:48 | disposition home or self-care (01) ==
PROVIDERS: PCP Family Medicine; Visit Provider Internal Medicine Medical Oncology
DX: C50.911 Malignant neoplasm of unspecified site of right female breast (principal)
CPT/HCPCS: 93005; 93010

== ENCOUNTER → 2023-06-02 04:01 | Outpatient (CLI) | payer OTHER, SELFPAY ==
--- NOTE | 2023-06-02 | DI.CT_ITS ---
Exam(s) CT CHEST/ABD/PEL W EXAM: CT CHEST/ABD/PEL W CLINICAL HISTORY: RT BREAST CA,C50.411,Z17.0,UNINTENDED WT LOSS,METASTATIC DISEASE EVALUATION. TECHNIQUE: Imaging Protocol: Axial computed tomography images with coronal and sagittal reformatted images were created and reviewed CONTRAST MATERIAL: Intravenous: Omnipaque 350 Contrast volume:100 ml Oral: Yes. Oral contrast was also for bowel opacification. COMPARISON: CT CT THORAX ABDOMEN CTA from 11/03/2020 FINDINGS: CHEST: LUNGS: Again noted are subpleural increased interstitial markings in the anterior segment of the righ t upper lobe which are most probably related to post radiation changes in this patient who has had pr ior ipsilateral mastectomy.. In the posterior aspect of the right upper lobe there is a 4 millimeter unchanged nodule. In the anterior segment of the right upper lobe there is a new noncalcified nodul e measuring 7 by 6 mm, non cavitated. In addition, there is a new spiculated nodule in the right low er lobe measuring 10 by 9 mm. In the opposite-left lung there is a peripherally located 4 millimeter nodule in the lateral aspect o f the left upper lobe, not previously present. There also 2 subpleural nodules in the left lower lob e measuring 3 and 4 mm, not previously present on the scan of 2020. There are no new findings in the trachea and mainstem bronchi. There is no bronchiectasis There are no pleural effusions. MEDIASTINUM: There are now enlarged lymph nodes in both hilar regions not previously present and ther e is also some subcarinal adenopathy now evident. Visualized thyroid unremarkable. CARDIAC: Heart size is normal. There is no pericardial effusion.Caliber of the thoracic aorta is wit hin normal limits. OSSEOUS: No significant osseous lesions.. ABDOMEN: There is no ascites. Moderate size hiatal hernia noted. LIVER: There are multiple cysts again noted in the liver with minimal if any significant change from 2020 and the largest is again noted to be adjacent to the gallbladder fossa and measures 4.5 x 3 cm t here do not appear to be new solid non cystic liver lesions. No dilated intrahepatic ducts. GALLBLADDER/BILIARY: Gallbladder is somewhat contracted. CBD is not dilated. PANCREAS: No evidence of pancreatic mass nor dilatation of the pancreatic duct. SPLEEN: Spleen is not enlarged. There are no intrasplenic lesions. Splenic and portal veins are roberson nt. ADRENALS: There are no significant adrenal masses. KIDNEYS: No calculi nor hydronephrosis. No solid renal masses. No cysts evident. ABDOMINAL AORTA: Abdominal aorta is not enlarged. LYMPH NODES: There is no retroperitoneal nor paraaortic adenopathy. ABDOMINAL WALL: No evidence of significant anterior abdominal wall nor inguinal hernia. GI: There is no evidence of bowel obstruction. PELVIS: LYMPH NODES: There is no intrapelvic nor inguinal adenopathy. GI: No evidence of appendicitis.There are sigmoid diverticuli but no evidence of obvious acute divert iculitis. URINARY BLADDER: No calculi nor masses evident REPRODUCTIVE: Uterus is small or surgically absent. There are no abnormal adnexal masses. No free f luid in the pelvis. OSSEOUS: No significant osseous lesions. No acute fractures. No listhesis. Chronic findings in the lower thoracic-upper lumbar spine again n oted. IMPRESSION: 1. Concerning presence of new bilateral pulmonary nodules, the largest in the right lower lobe and me asuring 10 x 9 mm. Also concerning presence of increasing bilateral hilar and subcarinal adenopathy. These findings are consistent surrounding for increasing intrathoracic metastatic disease. 2. Stable appearing benign cysts in the liver. No evidence of new metastatic lesions in the liver no r elsewhere in the abdomen and pelvis. No evidence of zwenw-ppcipzlel-itzdgybqngi adenopathy nor asc ites nor new mesenteric masses. 3. No new concerning osseous findings RADIATION DOSE DELIVERED: 1,314.72mGy.cm Total DLP DATA REPOSITORY: All CT scans at this facility are submitted to the National Radiology Data Registry (NRDR) Dose Index Registry (DIR) with the [employer] ([employer]). RADIATION OPTIMIZATION: All CT scans at this facility use at least one of these dose optimization te chniques: automated exposure control; mA and/or kV adjustment per patient size (includes targeted exa ms where dose is matched to clinical indication); or iterative reconstruction.
--- NOTE | 2023-06-02 | DI.NM_ITS ---
Exam(s) NM BONE SCAN WHOLE BODY GRP EXAM: NM BONE SCAN WHOLE BODY GRP CLINICAL HISTORY: RT BREAST CA,c50.411,z17.0,METASTATIC DISEASE EVALUATION. TECHNIQUE: Injected Dose: 25 mCi Tc-99m MDP Delayed Images: 2-3 hours. COMPARISON: NM Bone Scan from 05/21/[address] CHEST/ABD/PEL W from 06/02/2023 FINDINGS: There is a focus of increased uptake seen in the region of the right knee which is probably degenerat rylee. Also symmetrical uptake in the 1st carpometacarpal joints of both hands, similar to previous an d related to degenerative changes at these articulations in both hands. There is no new abnormal focal skeletal uptake concerning for metastatic osseous disease IMPRESSION: 1. No evidence of metastatic disease. Other findings as above. DATA REPOSITORY:
[2023-06-02] MEDS: Barium Sulfate 2% W/V-Creamy Vanilla Smoothie 450 ML BTL PO (09:00)
[2023-06-02] MEDS: Barium Sulfate 2% W/V-Berry Smoothie 450 ML BTL PO (09:01)
[2023-06-02] MEDS: Normal Saline - Diluent 50 ML VIAL IJ (11:04)
[2023-06-02] MEDS: Omnipaque 350 MG/ML 500 ML BTL-Imaging package IJ (11:05)
== END ==
PROVIDERS: PCP Family Medicine; Visit Provider Internal Medicine Medical Oncology
DX: C50.411 Malignant neoplasm of upper-outer quadrant of right female breast (principal); Z17.0 Estrogen receptor positive status [ER+]; K76.89 Other specified diseases of liver
CPT/HCPCS: 74177; 78306; 71260

== ENCOUNTER 2023-06-08 07:50 | Outpatient (CLI) | payer OTHER, SELFPAY ==
--- NOTE | 2023-06-08 08:00 | RT.EKG_ITS ---
APPROVED REPORT Exam: Resting ECG Reason for Exam: ROUTINE CHEMO CHECK Patient Location: O HR:151 bpm ECG Measurements Heart Rate 151 AXIS MO [id number] P [id number] QRSd 78 QRS 73 QT 311 T 19 QTc 494 Conclusion Atrial fibrillation...? atrial activity Borderline prolonged QT interval...QTc >485mS
== END 2023-06-08 07:51 | disposition home or self-care (01) ==
PROVIDERS: PCP Family Medicine; Visit Provider Physician Assistant Medical
DX: R00.2 Palpitations (principal)
CPT/HCPCS: 93005; 93010

== ENCOUNTER 2023-06-08 08:53 | Emergency (ER) | payer OTHER, SELFPAY ==
[2023-06-08] VITALS (29 sets, daily range): BP systolic 138–163; BP diastolic 55–71; PULSE 60–80; RESP 9–19; TEMP 36.8; O2SAT 99–100
--- NOTE | 2023-06-08 08:45 | RT.EKG_ITS ---
APPROVED REPORT Exam: Resting ECG Reason for Exam: Abnormal EKG Patient Location: E HR:79 bpm ECG Measurements Heart Rate 79 AXIS VT 151 P 79 QRSd 84 QRS 78 QT 378 T 54 QTc 421 Conclusion Sinus rhythm...normal P axis, V-rate 60- 99 Atrial premature complexes...SV complexes w/ short R-R intvls
--- NOTE | 2023-06-08 12:20 | ED.GENADUL_ITS ---
Discharge Plan Disposition Patient Disposition: Home Condition: Stable Discharge Details Clinical Impression: Abnormal EKG Primary Care Provider: Griselda Mojica ED Provider: Deangelo Vang Home Meds and New Rx's Prescriptions: New aspirin 81 mg capsule 81 mg PO DAILY Qty: 30 0RF Continued ICaps AREDS2 (copper citrate) 250 mg-200 unit -12.5 mg-1 mg tablet,chewable 1 tab PO BID ciclopirox 8 % solution 1 applic topical QHS letrozole 2.5 mg tablet 2.5 mg PO DAILY Prolia 60 mg/mL syringe 60 mg subcut [id number] calcium carbonate-vitamin D3 500 mg-10 mcg (400 unit) tablet 1 tab PO BID multivitamin Tablet 1 tab PO DAILY pyridoxine (vitamin B6) 100 mg tablet 100 mg PO QID vitamin B complex [B Complex-Vitamin B12] Tablet 1 tab PO DAILY cyanocobalamin (vitamin B-12) 1,000 mcg tablet 1,000 mcg PO DAILY Kisqali 400 mg/day (200 mg x 2) tablet 400 mg PO DAILY Patient Comments: take 2 200 mg tablets daily venlafaxine 37.5 mg capsule,extended release 24hr 37.5 mg PO ONCE Patient Comments: TAKE ONE CAPSULE BY MOUTH EVERY DAY Discharge Instructions Instructions: A-fib (Atrial Fibrillation) (ED) Additional Instructions: Please start aspirin 81 mg daily. Please contact your primary care physician to arrange follow-up. Please follow-up with your oncologist. Return to the ER immediately for any worsening or new concerning symptoms including abnormal heart rhythm, palpitations, chest pain or shortness of breath, or dizzyness. Referrals: Griselda Mojica MD [Primary Care Provider] - Discharge Data Discharge Date/Time-TO BE ENTERED AT DEPARTURE: 06/08/23 14:48 HPI General Mode of arrival: ambulatory . Date/Time Provider Initiated Documentation: 06/08/23 08:54 . Limitations to Documentation: no limitations . Information obtained by: patient . HPI Narrative: 68-year-old female presents today for abnormal EKG. Patient states she had a surveillance EKG that showed elevated heart rate. Patient sent to the ER for further evaluation. Patient notes she is currently on chemotherapy that can affect heart rhythm which is why she is having EKGs. Patient denies shortness of breath or chest pain. She feels well at this time. Related Data Home Medications Medication Instructions Recorded Confirmed calcium carbonate 500 mg-vitamin 1 tab PO BID 01/30/22 06/08/23 D3 10 mcg (400 unit) tablet ciclopirox 8 % topical solution 1 applic topical QHS 01/30/22 06/08/23 denosumab 60 mg/mL subcutaneous 60 mg subcut [id number] 01/30/22 06/08/23 syringe (Prolia) letrozole 2.5 mg tablet 2.5 mg PO DAILY 01/30/22 06/08/23 multivitamin 1 tab PO DAILY 01/30/22 06/08/23 pyridoxine (vitamin B6) 100 mg 100 mg PO QID 01/30/22 06/08/23 tablet vitamin B complex (B 1 tab PO DAILY 01/30/22 06/08/23 Complex-Vitamin B12 tablet) vit C 250 mg-vit E 200 unit-zinc 1 tab PO BID 02/27/22 06/08/23 12.5 mg-copping machine operator 1 mg-lut-zeax chew tablet (ICaps AREDS2 (copper citrate)) cyanocobalamin (vitamin B-12) 1,000 mcg PO DAILY 06/09/22 06/08/23 1,000 mcg tablet aspirin 81 mg capsule 81 mg PO DAILY #30 caps 06/08/23 ribociclib 400 mg/day (200 mg x 2) 400 mg PO DAILY breast cancer 06/08/23 06/08/23 tablets (Kisqali) preventative venlafaxine 37.5 mg 37.5 mg PO ONCE 06/08/23 06/08/23 capsule,extended release 24 hr Previous Rx's Medication Instructions Recorded aspirin 81 mg capsule 81 mg PO DAILY #30 caps 06/08/23 Allergies Allergy/AdvReac Type Severity Reaction Status Date / Time No Known Allergies Allergy Unverified 06/08/23 11:01 General Stated Complaint: Arrhythmia SUDHEER: 3 Review of Systems All systems reviewed & are unremarkable except as noted in HPI and below Constitutional Constitutional: Denies fever(s) Cardiovascular Cardiovascular: Reports as per HPI, Denies chest pain, Denies lightheadedness and Denies dyspnea Respiratory Respiratory: Denies dyspnea Exam Const General: cooperative and no acute distress HENMT Mouth: moist mucous membranes Eyes Conjunctivae: normal conjunctivae Sclera: normal sclerae Neck Neck: trachea midline and supple Resp Auscultation: clear to auscultation bilaterally, no rales, no rhonchi and no wheezes Cardio Rate: regular rate and not tachycardic Rhythm: regular rhythm GI Palpation: soft, not firm, no guarding, no masses, not rigid and nontender Skin General skin exam: no rashes or lesions noted Neuro General: patient alert, patient awake and tone normal Extrem General: no calf tenderness and no edema Psych Appearance: grossly normal Mental Status: mental status grossly normal Course Vital Signs Vital signs: Vital Signs Temperature 36.8 C 06/08/23 09:01 Pulse 70 06/08/23 09:01 Respiratory Rate 18 06/08/23 09:01 Blood Pressure 155/62 H 06/08/23 09:01 Pulse Oximetry 99 06/08/23 09:01 Temperature 36.8 C 06/08/23 09:01 Temperature Source Temporal Artery Scan 06/08/23 09:01 Pulse 64 06/08/23 12:01 Pulse 67 06/08/23 12:01 Respiratory Rate 15 06/08/23 12:01 Respiratory Effort Normal, Non-Labored 06/08/23 09:06 Blood Pressure 153/64 H 06/08/23 12:01 Blood Pressure Mean 93 06/08/23 12:01 Blood Pressure Position Sitting 06/08/23 09:01 Pulse Oximetry 100 06/08/23 12:01 Oxygen Delivery Method Room Air 06/08/23 09:01 Oxygen Flow Rate 0 06/08/23 09:01 Pain Level 0 06/08/23 10:44 Medical Decision Making 68-year-old female with history of breast cancer on chemotherapy, here with EKG concerning for atrial fibrillation. Patient's chemotherapy has known side effect of arrhythmia. Repeat EKG was reviewed interpreted by me: Normal sinus rhythm. Patient is asymptomatic. I called and spoke with the patient's oncologist, [place] [facility] [place] discussed ED presentation course, he does not recommend any changes to medication at this time. He recommends follow-up in clinic. Patient does have a Jaspal 2 score of 2. She is not currently in atrial fibrillation. Plan for follow-up with PCP to discuss further anticoagulation. I attempted to contact the PCP was not available. Usual customary discharge instructions were reviewed with the patient. Quality:SDOH Health Related Social Needs: No Data to Display PFSH All Active Problems (Updated 06/08/23 @ 13:55 by Deangelo Vang MD) Abnormal EKG (Acute) Neuropathy due to chemotherapeutic drug (Acute) Postnasal drip (Acute) Sensorineural hearing loss of left ear (Acute) Mixed conductive and sensorineural hearing loss of right ear with restricted hearing of left ear (Acute) Chest pain (Acute) Thickening of skin of breast (Acute) Medical History (Updated 06/08/23 @ 13:55 by Deangelo Vang MD) History of blood transfusion Trigger finger, right ring finger Osteoporosis Boniva 5-6 yes, stopped 09/2014, Prolia 03/2020 Mild memory disturbance Chronic fatigue Melanoma in situ Hx of breast cancer Onychomycosis of toenail Acute otitis media, right Obesity Perforated ear drum Gastroesophageal reflux disease Basal cell carcinoma, face Osteopenia Surgical History Hysterectomy, Laparoscopic Supracervical Colonoscopy - [facility] (12/03/16) Social History (Updated 06/09/22 @ 15:51 by Gilma Madera RN) Smoking/Tobacco Use Status: Former Tobacco Use Quit Date: 02/09/94 Pack-years: 2 Smoking risk assessment performed?: Yes Alcohol Intake: current Alcohol Intake frequency: 0-2 drinks per day Alcohol type: hard liquor Drug use: Never Substance use type: does not use Household members: spouse Housing: house 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
[2023-06-08 14:21] LABS: Abs Immature Grans 0.03 10^3/uL (0.0-0.06); Absolute Basophil Count 0.03 10^3/uL (0.0-0.2); Absolute Eosinophil Count 0.04 10^3/uL (0.0-0.7); Absolute Lymphocyte Count 0.88 10^3/uL (1.2-3.4); Absolute Monocyte Count 0.19 10^3/uL (0.1-0.8); Absolute Neutrophil Count 4.17 10^3/uL (1.2-6.7); Basophils % 0.6; Eosinophils % 0.7; HCT 38.8 % (36.0-46.0); HGB 13.1 g/dL (11.2-15.7); Immature Grans % 0.6; Lymphocytes % 16.5; MCH 32.8 pg (27.0-33.0); MCHC 33.8 % (32.0-36.0); MCV 97 fL (80-95); MPV 9.7 fL (8.0-11.0); Monocytes % 3.6; Platelet Count 177 10^3/uL (130-400); RDW 12.1 % (11.7-14.6); RDW-SD 43.3 fL; WBC 5.34 10^3/uL (4.4-10.8)
[2023-06-08] MEDS: Aspirin 81 MG CHEW (14:22)
[2023-06-08 14:46] LABS: ALT 25 U/L (14-59); AST 22 U/L (15-37); Albumin 3.8 g/dL (3.4-5.0); Alkaline Phosphatase 81 U/L (46-116); Anion Gap 6.9 mmol/L (3-11); BUN 10 mg/dL (7-18); Bilirubin, Total 1.3 mg/dL (0.2-1.0); CO2 29.1 mmol/L (21.0-32.0); CREATININE 0.8 mg/dL (0.55-1.02); Chloride 104 mmol/L (98-107); Estimated GFR 81.21 (mL/min/1.73m2); Glucose 96 mg/dL (74-106); Magnesium 2.1 mg/dL (1.8-2.4); Potassium 4.2 mmol/L (3.5-5.1); Sodium 140 mmol/L (136-145); TSH (W/Ref FT4) 8.27 uIU/mL (0.36-3.74); Total Protein 7.4 g/dL (6.4-8.2); Troponin I < 50 ng/L (< or =60)
== END 2023-06-08 14:48 | disposition home or self-care (01) ==
PROVIDERS: Emergency Provider Student in an Organized Health Care Education/Training Program; PCP Family Medicine
DX: R94.31 Abnormal electrocardiogram [ECG] [EKG] (principal); Z92.21 Personal history of antineoplastic chemotherapy
CPT/HCPCS: 80053; 93005; 99282; 83735; 84439; 84443; 84484; 85025; 93010; 99283

== ENCOUNTER 2023-06-23 05:07 | Outpatient (CLI) | payer OTHER, SELFPAY ==
[2023-06-23 08:45] LABS: Abs Immature Grans 0.01 10^3/uL (0.0-0.06); Absolute Basophil Count 0.04 10^3/uL (0.0-0.2); Absolute Eosinophil Count 0.02 10^3/uL (0.0-0.7); Absolute Lymphocyte Count 0.67 10^3/uL (1.2-3.4); Absolute Monocyte Count 0.16 10^3/uL (0.1-0.8); Absolute Neutrophil Count 1.32 10^3/uL (1.2-6.7); Basophils % 1.8 %; Eosinophils % 0.9 %; HCT 37.6 % (36.0-46.0); HGB 12.6 g/dL (11.2-15.7); Immature Grans % 0.5 %; Lymphocytes % 30.2 %; MCH 32.7 pg (27.0-33.0); MCHC 33.5 % (32.0-36.0); MCV 98 fL (80-95); MPV 9.3 fL (8.0-11.0); Monocytes % 7.2 %; Neutrophils % 59.4 %; Platelet Count 163 10^3/uL (130-400); RBC 3.85 10^6/uL (3.93-5.22); RDW 13.7 % (11.7-14.6); RDW-SD 46.1 fL; WBC 2.22 10^3/uL (4.4-10.8)
[2023-06-23 09:00] LABS: ALT 23 U/L (14-59); AST 22 U/L (15-37); Albumin 3.9 g/dL (3.4-5.0); Alkaline Phosphatase 86 U/L (46-116); Anion Gap 4.1 mmol/L (3-11); BUN 8 mg/dL (7-18); Bilirubin, Total 0.9 mg/dL (0.2-1.0); CO2 30.9 mmol/L (21.0-32.0); Calcium 9.5 mg/dL (8.5-10.1); Chloride 107 mmol/L (98-107); Estimated GFR 61.75 (mL/min/1.73m2); Glucose 100 mg/dL (74-106); Potassium 4.2 mmol/L (3.5-5.1); Sodium 142 mmol/L (136-145); Total Protein 7.1 g/dL (6.4-8.2)
== END 2023-06-23 05:08 | disposition home or self-care (01) ==
LOC: LBO 05:07
PROVIDERS: PCP Family Medicine; Visit Provider Physician Assistant Medical
DX: C50.411 Malignant neoplasm of upper-outer quadrant of right female breast (principal); Z17.0 Estrogen receptor positive status [ER+]; Z79.899 Other long term (current) drug therapy
CPT/HCPCS: 36415; 80053; 85025

== ENCOUNTER 2023-06-23 07:48 | Outpatient (CLI) | payer OTHER, SELFPAY ==
--- NOTE | 2023-06-23 07:45 | RT.EKG_ITS ---
APPROVED REPORT Exam: Resting ECG Reason for Exam: CHEMO FOLLOW UP Patient Location: O HR:53 bpm ECG Measurements Heart Rate 53 AXIS VA 159 P 78 QRSd 90 QRS 79 QT 446 T 67 QTc 419 Conclusion Sinus rhythm...normal P axis, V-rate 50- 99 Probable left atrial enlargement...P >50mS, <-0.10mV V1 Otherwise normal ECG
== END 2023-06-23 07:49 | disposition home or self-care (01) ==
PROVIDERS: PCP Family Medicine; Visit Provider Physician Assistant Medical
DX: Z92.21 Personal history of antineoplastic chemotherapy (principal); C50.411 Malignant neoplasm of upper-outer quadrant of right female breast
CPT/HCPCS: 93005; 93010

== ENCOUNTER 2023-07-30 10:55 | Emergency (ER) | payer OTHER, SELFPAY ==
[2023-07-30] VITALS (35 sets, daily range): BP systolic 157–176; BP diastolic 62–76; PULSE 57–154; RESP 9–19; TEMP 36.1–36.6; O2SAT 98–100
--- NOTE | 2023-07-30 11:00 | RT.EKG_ITS ---
APPROVED REPORT Exam: Resting ECG Reason for Exam: rapid heart rate Patient Location: E HR:63 bpm ECG Measurements Heart Rate 63 AXIS NJ 157 P 66 QRSd 84 QRS 77 QT 384 T 52 QTc 394 Conclusion Second degree AV block, Mobitz II...multiple P waves
--- NOTE | 2023-07-30 11:07 | W.ED.GENAD ---
Discharge Plan Disposition Patient Disposition: Home Condition: Stable Discharge Details Clinical Impression: Arrhythmia Primary Care Provider: Griselda Mojica ED Provider: Chandler Randle Home Meds and New Rx's Prescriptions: Continued ICaps AREDS2 (copper citrate) 250 mg-200 unit -12.5 mg-1 mg tablet,chewable 1 tab PO BID ciclopirox 8 % solution 1 applic topical QHS Prolia 60 mg/mL syringe 60 mg subcut [id number] calcium carbonate-vitamin D3 500 mg-10 mcg (400 unit) tablet 1 tab PO BID multivitamin Tablet 1 tab PO DAILY pyridoxine (vitamin B6) 100 mg tablet 100 mg PO QID vitamin B complex [B Complex-Vitamin B12] Tablet 1 tab PO DAILY cyanocobalamin (vitamin B-12) 1,000 mcg tablet 1,000 mcg PO DAILY Kisqali 400 mg/day (200 mg x 2) tablet 400 mg PO DAILY Patient Comments: take 2 200 mg tablets daily venlafaxine 37.5 mg capsule,extended release 24hr 37.5 mg PO ONCE Patient Comments: TAKE ONE CAPSULE BY MOUTH EVERY DAY aspirin 81 mg capsule 81 mg PO DAILY Qty: 30 0RF Discharge Instructions Instructions: Arrhythmias Additional Instructions: You were seen in the emergency department for your tacky arrhythmia while getting infusion of chemotherapy, this had resolved by time of ED evaluation, I had the electrophysiology team at [facility] reviewed your EKG and rhythm strip, they do not feel that this was a Mobitz type II heart block. They recommend an outpatient ZIO heart monitor, please call your primary care office as we are unable to order these from the emergency department because they require a prior authorization. Please return to the emergency department for any emergent concerns including fast heart rate, palpitations, dizziness, chest pain, shortness of breath. Referrals: [facility] [Provider Group] Griselda Mojica MD [Primary Care Provider] - Discharge Data Discharge Date/Time-TO BE ENTERED AT DEPARTURE: 07/30/23 15:49 HPI General Date/Time Provider Initiated Documentation: 07/30/23 10:57. HPI Narrative: 68 year-old female presents to ED today by POV/ambulating with a chief complaint of irregular heart rate reported [facility], had previously been in remission since 2019 with onset just prior to arrival. Quality described as asymptomatic- patient states she felt zero symptoms of dizziness, chest pain, palpitations, nausea, weakness- she was reportedly at a pulse [facility], drove herself here and was at HR 154 in triage, but in NSR at 67 at time of evaluation, no radiation to chest pain, fever, hives, shortness of breath, dizziness, palpitations, nausea/vomiting, slurred speech, headache, visual changes. Severity is described as 0/10. Palliating factors include nothing attempted. Provoking factors include possible infusion of Kisqali. Events leading up to the incident/Associated Symptoms: Patient denies any cardiac history. Patient not anticoagulated. Related Data Home Medications Medication Instructions Recorded Confirmed calcium carbonate 500 mg-vitamin 1 tab PO BID 01/30/22 07/30/23 D3 10 mcg (400 unit) tablet ciclopirox 8 % topical solution 1 applic topical QHS 01/30/22 07/30/23 denosumab 60 mg/mL subcutaneous 60 mg subcut [id number] 01/30/22 07/30/23 syringe (Prolia) multivitamin 1 tab PO DAILY 01/30/22 07/30/23 pyridoxine (vitamin B6) 100 mg 100 mg PO QID 01/30/22 07/30/23 tablet vitamin B complex (B 1 tab PO DAILY 01/30/22 07/30/23 Complex-Vitamin B12 tablet) vit C 250 mg-vit E 200 unit-zinc 1 tab PO BID 02/27/22 07/30/23 12.5 mg-copy room technician 1 mg-lut-zeax chew tablet (ICaps AREDS2 (copper citrate)) cyanocobalamin (vitamin B-12) 1,000 mcg PO DAILY 06/09/22 07/30/23 1,000 mcg tablet aspirin 81 mg capsule 81 mg PO DAILY #30 caps 06/08/23 07/30/23 ribociclib 400 mg/day (200 mg x 2) 400 mg PO DAILY breast cancer 06/08/23 07/30/23 tablets (Kisqali) preventative venlafaxine 37.5 mg 37.5 mg PO ONCE 06/08/23 07/30/23 capsule,extended release 24 hr Previous Rx's Medication Instructions Recorded aspirin 81 mg capsule 81 mg PO DAILY #30 caps 06/08/23 Allergies Allergy/AdvReac Type Severity Reaction Status Date / Time No Known Allergies Allergy Unverified 07/30/23 11:02 General Stated Complaint: Arrhythmia SUDHEER: 2 Review of Systems All systems reviewed & are unremarkable except as noted in HPI and below Exam Narrative Exam Narrative: GENERAL APPEARANCE: Well-nourished, non-toxic, awake and alert, atraumatic, no acute distress. SKIN: Warm, pink, dry, intact, without rashes/lesions/ulcerations. HEAD: Normocephalic, atraumatic, normal hair distribution for gender/age. EYES: Pupils PERRLA, EOMs intact without nystagmus, normal conjunctiva, no exudates on lids/lashes. ENT: Nares patent, no circumoral cyanosis, no facial swelling NECK: Supple, trachea midline, painless cervical ROM. LUNGS/CHEST: Lungs CTA bilaterally- no rhonchi/rales/wheezes diffusely, non-labored respirations, normal A/P diameter, symmetrical expansion, no chest wall deformity HEART (CV/PV): Regular rate and rhythm without murmur, no peripheral edema, no JVD. ABDOMEN: Soft, non-distended, no guarding, no tenderness. MSK: Normal ROM, no swelling/deformity to bilateral UEs or LEs, moving all extremities without weakness, no cyanosis, spine midline without tenderness, normal curvature. NEURO: Mental Status AAOx4 - alert to person, place, time, events No facial droop, no forehead involvement. Motor: No focal weakness - strength 5/5 in bilateral UEs and LEs, proximal and distal, symmetric. Sensory: sensation intact to light touch globally. Gait normal: patient ambulated without ataxia into ED room. PSYCH: euthymic, cooperative, pleasant, appropriate speech Course Vital Signs Vital signs: Vital Signs Temperature 36.6 C 07/30/23 10:59 Pulse 154 H 07/30/23 10:59 Respiratory Rate 16 07/30/23 10:59 Blood Pressure 172/76 H 07/30/23 10:59 Pulse Oximetry 100 07/30/23 10:59 Temperature 36.6 C 07/30/23 10:59 Temperature Source Temporal Artery Scan 07/30/23 10:59 Pulse 154 H 07/30/23 10:59 Respiratory Rate 16 07/30/23 10:59 Respiratory Effort Normal, Non-Labored 07/30/23 11:04 Blood Pressure 172/76 H 07/30/23 10:59 Blood Pressure Position Sitting 07/30/23 10:59 Pulse Oximetry 100 07/30/23 10:59 Oxygen Delivery Method Room Air 07/30/23 10:59 Oxygen Flow Rate 0 07/30/23 10:59 Pain Level 0 07/30/23 10:59 Medical Decision Making This dictation utilizes [id number] dictation software and may contain unedited grammatical errors. 68 year-old female presents to ED today by POV/ambulating with a chief complaint of irregular heart rate reported while getting infusion at [facility] for re-emergence of breast CA, had previously been in remission since 2019 with onset just prior to arrival. Quality described as asymptomatic- patient states she felt zero symptoms of dizziness, chest pain, palpitations, nausea, weakness- she was reportedly at a pulse of 177 at [facility], drove herself here and was at HR 154 in triage, but in NSR at 67 at time of evaluation, no radiation to chest pain, fever, hives, shortness of breath, dizziness, palpitations, nausea/vomiting, slurred speech, headache, visual changes. Severity is described as 0/10. Palliating factors include nothing attempted. Provoking factors include possible infusion of Kisqali. Events leading up to the incident/Associated Symptoms: Patient denies any cardiac history. Patients' medical history: Osteoporosis, mild memory disturbance, melanoma in situ, history of breast cancer, basal cell carcinoma of the face, GERD, neuropathy due to chemotherapeutic drug. Family and social history: Eats well, exercises regularly, denies drug. Pertinent exam findings / vital signs include benign cardiopulmonary exam, the tachycardia seen in triage had resolved by time of ED room evaluation, benign abdomen, nontoxic vitals, hemodynamically stable. Differential / pathologies of concern include arrhythmia, heart block, ACS, palpitations. Diagnostic studies of: -CBC, CMP, Serial Troponin, BNP, TSH, Tick & Lyme Panel, EKG, CXR. -CBC shows leukopenia 3.86, no anemia -CMP is benign -TSH is elevated at 5.23 but has prior history of elevated TSH, T4 within normal limits -Serial troponins negative -Tick panel pending at time of discharge -CXR shows no acute pathology -Initial EKG shows a possible Mobitz Type II, tachycardia had resolved by time of EKG, but HR 154 was palpated by RN in triage. NSR since then on monitor and rhythm strip- question PACs vs Mobitz II Interventions of: -Consult [facility] Cardiology/EP - they feel these are just PAC's, recommend a ROSSANA patch in the short-term f/u period. Discussed extensively with the patient.. ED Course/Assessment/Plan: 68-year-old female received infusion of a new chemotherapy drug for resurgence of breast cancer today, had a tachyarrhythmia at infusion center, was 154 on arrival here, was asymptomatic the entire time and has no cardiac history. Initial EKG shows sinus rhythm but some PACs likely, question of Mobitz type II block which was discussed with cardiology and electrophysiology at [facility], they feel this is PACs and not a Mobitz type II block, they do not think this warrants transfer they want the patient to have a Zio patch in the short-term. She has close follow-up with her provider and was comfortable with requesting this for prior authorization, she recently had a 2-week heart monitor without findings as well. I question whether this was a side effect from her recent infusion of chemotherapy drug but she remained asymptomatic and hemodynamically stable with a normal heart rate throughout the visit and serial troponins were performed which were negative. Findings not consistent with ACS, Mobitz type II block, unstable tachyarrhythmia, symptoms of chest pain or hemodynamic instability. Disposition of Arrhythmia. Patient verbalized understanding of the plan and return to ED criteria and engaged in shared decision making. Medical Records Medical records reviewed: Yes I reviewed the patient's medical records. Imaging Data Radiologic Study: Attestation: I personally reviewed and interpreted this imaging study as follows: Imaging: X-Ray Radiologist's impression: EXAM: XR CHEST 2V PA LATERAL CLINICAL HISTORY: tachycardia, elevated BNP TECHNIQUE: 2D digital imaging was performed. Two views. COMPARISON: CT CT CHEST/ABD/PEL W from 06/02/2023 FINDINGS: HEART: Normal size. Aorta: Not dilated. PULMONARY VASCULATURE: Normal. LUNGS: Fibrotic changes greater in the right upper lobe as seen on prior chest CT. No acute infiltrate. No evidence of pulmonary edema. PLEURAL SPACE: No pleural effusion or pneumothorax. BONE:Lower thoracic kyphosis and degenerative changes. Stable anterior wedging of lower thoracic vertebral bodies. Soft tissues: Unremarkable. IMPRESSION: No acute abnormality. Lab Data Lab results reviewed: Yes I reviewed the patient's lab results. Labs: Laboratory Tests Range/Units 07/30/23 07/30/23 07/30/23 11:45 14:15 14:45 WBC (4.4-10.8) 10^3/uL 3.86 L RBC (3.93-5.22) 10^6/uL 3.75 L Hgb (11.2-15.7) g/dL 13.2 Hct (36.0-46.0) % 37.8 MCV (80-95) fL 101 H MCH (27.0-33.0) pg 35.2 H MCHC (32.0-36.0) % 34.9 RDW (11.7-14.6) % 15.7 H Plt Count (130-400) 10^3/uL 230 MPV (8.0-11.0) fL 9.7 Immature Gran % % 0.3 Neutrophils % % 76.8 Lymphocytes % % 14.0 Monocytes % % 5.2 Eosinophils % % 2.1 Basophils % % 1.6 Nucleated RBC % (0.0-0.3) % 0.0 Absolute Neutrophils (1.2-6.7) 10^3/uL 2.96 Absolute Lymphocytes (1.2-3.4) 10^3/uL 0.54 L Absolute Monocytes (0.1-0.8) 10^3/uL 0.20 Absolute Eosinophils (0.0-0.7) 10^3/uL 0.08 Absolute Basophils (0.0-0.2) 10^3/uL 0.06 Sodium (136-145) mmol/L 140 Potassium (3.5-5.1) mmol/L 4.2 Chloride (98-107) mmol/L 105 Carbon Dioxide (21.0-32.0) mmol/L 28.0 Anion Gap (3-11) mmol/L 7.0 BUN (7-18) mg/dL 10 Creatinine (0.55-1.02) mg/dL 0.9 Est GFR (CKD-EPI 2020) (mL/min/1.73m2) 70.07 Glucose (74-106) mg/dL 94 Calcium (8.5-10.1) mg/dL 8.9 Magnesium (1.8-2.4) mg/dL 1.9 Total Bilirubin (0.2-1.0) mg/dL 1.09 H AST (15-37) U/L 41 H ALT (14-59) U/L 58 Alkaline Phosphatase (46-116) U/L 96 Troponin I (< or =60) ng/L < 50 Cancelled < 50 NT-Pro-B Natriuret Pep (<300) pg/mL 484 H Total Protein (6.4-8.2) g/dL 6.9 Albumin (3.4-5.0) g/dL 3.7 TSH (0.36-3.74) uIU/mL 5.23 H Free T4 (0.76-1.46) ng/dL 0.99 Lyme Disease Antibody (Negative) Negative Quality:SDOH Health Related Social Needs: No Data to Display PFSH All Active Problems (Updated 07/30/23 @ 14:44 by ANANYA Mike) Arrhythmia (Acute) Neuropathy due to chemotherapeutic drug (Acute) Postnasal drip (Acute) Sensorineural hearing loss of left ear (Acute) Mixed conductive and sensorineural hearing loss of right ear with restricted hearing of left ear (Acute) Chest pain (Acute) Thickening of skin of breast (Acute) Medical History (Updated 07/30/23 @ 14:44 by ANANYA Mike) History of blood transfusion Trigger finger, right ring finger Osteoporosis Boniva 5-6 yes, stopped 09/2014, Prolia 03/2020 Mild memory disturbance Chronic fatigue Melanoma in situ Hx of breast cancer Onychomycosis of toenail Acute otitis media, right Obesity Perforated ear drum Gastroesophageal reflux disease Basal cell carcinoma, face Osteopenia Surgical History Hysterectomy, Laparoscopic Supracervical Colonoscopy - MAC (12/03/16) Social History (Updated 06/09/22 @ 15:51 by Gilma Madera RN) Smoking/Tobacco Use Status: Former Tobacco Use Quit Date: 02/09/94 Pack-years: 2 Smoking risk assessment performed?: Yes Alcohol Intake: current Alcohol Intake frequency: 0-2 drinks per day Alcohol type: hard liquor Drug use: Never Substance use type: does not use Household members: spouse Housing: house 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
[2023-07-30 11:54] LABS: Abs Immature Grans 0.01 10^3/uL (0.0-0.06); Absolute Basophil Count 0.06 10^3/uL (0.0-0.2); Absolute Eosinophil Count 0.08 10^3/uL (0.0-0.7); Absolute Lymphocyte Count 0.54 10^3/uL (1.2-3.4); Basophils % 1.6 %; Eosinophils % 2.1 %; HCT 37.8 % (36.0-46.0); HGB 13.2 g/dL (11.2-15.7); Immature Grans % 0.3 %; MCH 35.2 pg (27.0-33.0); MCHC 34.9 % (32.0-36.0); MCV 101 fL (80-95); MPV 9.7 fL (8.0-11.0); Monocytes % 5.2 %; Neutrophils % 76.8 %; Platelet Count 230 10^3/uL (130-400); RBC 3.75 10^6/uL (3.93-5.22); RDW 15.7 % (11.7-14.6); RDW-SD 58.1 fL; WBC 3.86 10^3/uL (4.4-10.8)
[2023-07-30 11:55] LABS: Absolute Neutrophil Count 2.96 10^3/uL (1.2-6.7)
--- NOTE | 2023-07-30 12:15 | DI.RAD_ITS ---
Exam(s) XR CHEST 2V PA LATERAL EXAM: XR CHEST 2V PA LATERAL CLINICAL HISTORY: tachycardia, elevated BNP TECHNIQUE: 2D digital imaging was performed. Two views. COMPARISON: CT CT CHEST/ABD/PEL W from 06/02/2023 FINDINGS: HEART: Normal size. Aorta: Not dilated. PULMONARY VASCULATURE: Normal. LUNGS: Fibrotic changes greater in the right upper lobe as seen on prior chest CT. No acute infiltra te. No evidence of pulmonary edema. PLEURAL SPACE: No pleural effusion or pneumothorax. BONE:Lower thoracic kyphosis and degenerative changes. Stable anterior wedging of lower thoracic mario tebral bodies. Soft tissues: Unremarkable. IMPRESSION: No acute abnormality. DATA REPOSITORY: RADIATION DOSE DELIVERED:
[2023-07-30 12:17] LABS: ALT 58 U/L (14-59); AST 41 U/L (15-37); Albumin 3.7 g/dL (3.4-5.0); Alkaline Phosphatase 96 U/L (46-116); BUN 10 mg/dL (7-18); Bilirubin, Total 1.09 mg/dL (0.2-1.0); CREATININE 0.9 mg/dL (0.55-1.02); Calcium 8.9 mg/dL (8.5-10.1); Chloride 105 mmol/L (98-107); Estimated GFR 70.07 (mL/min/1.73m2); Glucose 94 mg/dL (74-106); Magnesium 1.9 mg/dL (1.8-2.4); NT-proBNP 484 pg/mL (<300); Potassium 4.2 mmol/L (3.5-5.1); Sodium 140 mmol/L (136-145); TSH (W/Ref FT4) 5.23 uIU/mL (0.36-3.74); Total Protein 6.9 g/dL (6.4-8.2); Troponin I < 50 ng/L (< or =60)
[2023-07-30 12:37] LABS: FREE T4 0.99 ng/dL (0.76-1.46)
[2023-07-30 15:12] LABS: Troponin I < 50 ng/L (< or =60)
[2023-07-31 09:45] LABS: Lyme Ab w Rflx to Lyme Confirm Negative (Negative)
--- NOTE | 2023-08-01 11:29 | NUR.NOTE ---
Accessed chart to determine number of EKG order to EKG's in [facility]. Duplicate EKG order cancelled. Nursing Note:
[2023-08-01 16:10] LABS: Anaplasma phagocytophilum Negative (Negative); B. miyamotoi PCR Negative (Negative); Babesia divergens/MO-1 Negative (Negative); Babesia duncani Negative (Negative); Babesia microti Negative (Negative); Ehrlichia chaffeensis Negative (Negative); Ehrlichia ewingii/canis Negative (Negative); Ehrlichia muris eauclairensis Negative (Negative)
== END 2023-07-30 15:49 | disposition home or self-care (01) ==
PROVIDERS: Emergency Provider Physician Assistant; PCP Family Medicine
DX: R00.0 Tachycardia, unspecified (principal); C50.919 Malignant neoplasm of unspecified site of unspecified female breast; I44.1 Atrioventricular block, second degree; Z92.21 Personal history of antineoplastic chemotherapy; Z87.891 Personal history of nicotine dependence
CPT/HCPCS: 80053; 87798; 93005; 71046; 83735; 83880; 84439; 84443; 84484; 85025; 86618; 93010

== ENCOUNTER 2023-08-03 09:43 | Outpatient (CLI) | payer OTHER, SELFPAY ==
--- NOTE | 2023-08-03 09:45 | RT.EKG_ITS ---
APPROVED REPORT Exam: Resting ECG Reason for Exam: ROUTINE FOLLOW UP Patient Location: O HR:63 bpm ECG Measurements Heart Rate 63 AXIS ID 159 P 70 QRSd 90 QRS 56 QT 435 T 48 QTc 446 Conclusion Sinus rhythm...normal P axis, V-rate 50- 99 Atrial premature complexes...SV complexes w/ short R-R intvls Otherwise normal ECG
== END 2023-08-03 09:44 | disposition home or self-care (01) ==
PROVIDERS: PCP Family Medicine; Visit Provider Physician Assistant Medical
DX: Z79.899 Other long term (current) drug therapy (principal)
CPT/HCPCS: 93005; 93010

== ENCOUNTER 2023-08-03 19:46 | Outpatient (CLI) | payer OTHER, SELFPAY ==
[2023-08-03 10:52] LABS: Abs Immature Grans 0.01 10^3/uL (0.0-0.06); Absolute Basophil Count 0.04 10^3/uL (0.0-0.2); Absolute Eosinophil Count 0.03 10^3/uL (0.0-0.7); Absolute Lymphocyte Count 0.74 10^3/uL (1.2-3.4); Absolute Monocyte Count 0.26 10^3/uL (0.1-0.8); Absolute Neutrophil Count 2.64 10^3/uL (1.2-6.7); Basophils % 1.1 %; Eosinophils % 0.8 %; HGB 12.7 g/dL (11.2-15.7); Immature Grans % 0.3 %; Lymphocytes % 19.9 %; MCH 35.1 pg (27.0-33.0); MCHC 34.3 % (32.0-36.0); MCV 102 fL (80-95); MPV 9.7 fL (8.0-11.0); Neutrophils % 70.9 %; Platelet Count 246 10^3/uL (130-400); RBC 3.62 10^6/uL (3.93-5.22); RDW 15.5 % (11.7-14.6); RDW-SD 58.6 fL; WBC 3.72 10^3/uL (4.4-10.8)
[2023-08-03 11:50] LABS: ALT 49 U/L (14-59); AST 34 U/L (15-37); Albumin 3.7 g/dL (3.4-5.0); Alkaline Phosphatase 84 U/L (46-116); Anion Gap 5.1 mmol/L (3-11); BUN 10 mg/dL (7-18); CO2 32.9 mmol/L (21.0-32.0); CREATININE 0.9 mg/dL (0.55-1.02); Calcium 9.2 mg/dL (8.5-10.1); Chloride 103 mmol/L (98-107); Estimated GFR 70.07 (mL/min/1.73m2); Glucose 127 mg/dL (74-106); Potassium 3.9 mmol/L (3.5-5.1); Sodium 141 mmol/L (136-145); Total Protein 6.8 g/dL (6.4-8.2)
== END 2023-08-03 19:47 | disposition home or self-care (01) ==
LOC: LBO 19:47
PROVIDERS: PCP Family Medicine; Visit Provider Physician Assistant Medical
DX: C50.411 Malignant neoplasm of upper-outer quadrant of right female breast (principal); Z17.0 Estrogen receptor positive status [ER+]; Z79.899 Other long term (current) drug therapy
CPT/HCPCS: 36415; 80053; 85025

== ENCOUNTER 2023-08-19 09:21 | Outpatient (CLI) | payer OTHER, SELFPAY ==
[2023-08-19 09:34] LABS: HCT 35.4 % (36.0-46.0); HGB 12.4 g/dL (11.2-15.7); MCH 36.3 pg (27.0-33.0); MCV 104 fL (80-95); MPV 9.7 fL (8.0-11.0); Platelet Count 140 10^3/uL (130-400); RBC 3.42 10^6/uL (3.93-5.22); RDW 14.7 % (11.7-14.6); RDW-SD 55.5 fL
[2023-08-19 09:54] LABS: ALT 31 U/L (14-59); AST 25 U/L (15-37); Albumin 3.8 g/dL (3.4-5.0); Alkaline Phosphatase 82 U/L (46-116); Anion Gap 5.9 mmol/L (3-11); BUN 10 mg/dL (7-18); Bilirubin, Total 1.11 mg/dL (0.2-1.0); CO2 30.1 mmol/L (21.0-32.0); CREATININE 0.9 mg/dL (0.55-1.02); Calcium 9.1 mg/dL (8.5-10.1); Chloride 105 mmol/L (98-107); Estimated GFR 70.07 (mL/min/1.73m2); Glucose 98 mg/dL (74-106); Potassium 3.8 mmol/L (3.5-5.1); Sodium 141 mmol/L (136-145); Total Protein 6.8 g/dL (6.4-8.2)
[2023-08-19 10:37] LABS: Absolute Eosinophil Count 0.02 10^3/uL (0.0-0.7); Absolute Lymphocyte Count 0.63 10^3/uL (1.2-3.4); Absolute Monocyte Count 0.13 10^3/uL (0.1-0.8); Absolute Neutrophil Count 1.03 10^3/uL (1.2-6.7); Atypical Lymphocytes % 0 %; Bands % 0 %
[2023-08-19 10:39] LABS: Diff Comment Manual Differential; RBC Morphology Normal
[2023-08-21 10:33] LABS: Cancer Ag 15-3 50 U/mL (<30)
== END 2023-08-19 09:22 | disposition home or self-care (01) ==
LOC: LBO 09:21
PROVIDERS: PCP Family Medicine; Visit Provider Physician Assistant Medical
DX: C50.411 Malignant neoplasm of upper-outer quadrant of right female breast (principal); Z17.0 Estrogen receptor positive status [ER+]; Z79.899 Other long term (current) drug therapy; C78.7 Secondary malignant neoplasm of liver and intrahepatic bile duct
CPT/HCPCS: 36415; 80053; 86300; 85025

== ENCOUNTER 2023-08-21 08:56 | Outpatient (CLI) | payer OTHER, SELFPAY | END 2023-08-21 08:57 | disposition home or self-care (01) | PROVIDERS: PCP Family Medicine; Visit Provider Family Medicine | DX: R00.2 Palpitations (principal) | CPT/HCPCS: 93246 ==

== ENCOUNTER 2023-08-25 04:39 | Outpatient (CLI) | payer OTHER, SELFPAY ==
[2023-08-25 08:59] LABS: Absolute Basophil Count 0.03 10^3/uL (0.0-0.2); Absolute Eosinophil Count 0.06 10^3/uL (0.0-0.7); Absolute Lymphocyte Count 0.66 10^3/uL (1.2-3.4); Absolute Monocyte Count 0.29 10^3/uL (0.1-0.8); Absolute Neutrophil Count 1.02 10^3/uL (1.2-6.7); Basophils % 1.5 %; Eosinophils % 2.9 %; HCT 35.7 % (36.0-46.0); HGB 12.5 g/dL (11.2-15.7); MCV 103 fL (80-95); MPV 9.7 fL (8.0-11.0); Monocytes % 14.1 %; Neutrophils % 49.5 %; Platelet Count 152 10^3/uL (130-400); RBC 3.47 10^6/uL (3.93-5.22); RDW 14.6 % (11.7-14.6); RDW-SD 55.8 fL; WBC 2.06 10^3/uL (4.4-10.8)
[2023-08-25 09:15] LABS: ALT 28 U/L (14-59); AST 25 U/L (15-37); Albumin 3.8 g/dL (3.4-5.0); Alkaline Phosphatase 72 U/L (46-116); Anion Gap 6.6 mmol/L (3-11); BUN 11 mg/dL (7-18); Bilirubin, Total 0.98 mg/dL (0.2-1.0); CO2 29.4 mmol/L (21.0-32.0); CREATININE 0.8 mg/dL (0.55-1.02); Chloride 105 mmol/L (98-107); Estimated GFR 80.71 (mL/min/1.73m2); Glucose 94 mg/dL (74-106); Potassium 3.8 mmol/L (3.5-5.1); Sodium 141 mmol/L (136-145); Total Protein 6.7 g/dL (6.4-8.2)
[2023-08-27 12:49] LABS: Cancer Ag 15-3 55 U/mL (<30)
== END 2023-08-25 04:40 | disposition home or self-care (01) ==
LOC: LBO 04:39
PROVIDERS: PCP Family Medicine; Visit Provider Internal Medicine Medical Oncology
DX: C50.411 Malignant neoplasm of upper-outer quadrant of right female breast (principal); Z17.0 Estrogen receptor positive status [ER+]; D63.0 Anemia in neoplastic disease; Z79.899 Other long term (current) drug therapy
CPT/HCPCS: 36415; 80053; 86300; 85025

== ENCOUNTER 2023-09-10 08:32 | Outpatient (CLI) | payer MEDICARE, SELFPAY ==
--- NOTE | 2023-09-10 08:53 | CER_ITS ---
Date of service: 09/10/23 Time of Service: 08:53 Cardiac Event Recorder Referring Provider:: Griselda Mojica Indications:: Tachycardia Cardiac Event Note: This is a cardiac event monitor. Patient was monitored for 13 days and 6 hours. Predominant rhythm was sinus with an average heart rate of73. Minimum was 36, maximum 143 There were rare ventricular ectopic beats. There were several brief runs of nonsustained ventricular tachycardia. These generally occurred during the hours of sleep. Longest was 6 beats in duration There were rare atrial premature beats Atrial fibrillation was present. It lasted 1 hour and [address] rage heart rate of 149. It was not symptomatic Self-limited atrial runs occurred. These were generally less than 5 beats in duration There was no high-grade AV block, no pauses greater than 3 seconds Symptoms were reported. The majority corresponded to sinus rhythm, rarely to self-limited atrial runs, atrial and ventricular ectopics
== END 2023-09-10 08:33 | disposition home or self-care (01) ==
LOC: CARDOPNVT 08:32
PROVIDERS: PCP Family Medicine; Visit Provider Internal Medicine Cardiovascular Disease
DX: I48.91 Unspecified atrial fibrillation; I49.1 Atrial premature depolarization
CPT/HCPCS: 93248

== ENCOUNTER 2023-09-23 03:08 | Outpatient (CLI) | payer MEDICARE, SELFPAY ==
[2023-09-23 12:51] LABS: Absolute Basophil Count 0.04 10^3/uL (0.0-0.2); Absolute Eosinophil Count 0.04 10^3/uL (0.0-0.7); Absolute Lymphocyte Count 0.86 10^3/uL (1.2-3.4); Absolute Monocyte Count 0.29 10^3/uL (0.1-0.8); Absolute Neutrophil Count 1.28 10^3/uL (1.2-6.7); Basophils % 1.6 %; Eosinophils % 1.6 %; HCT 38.3 % (36.0-46.0); HGB 13.2 g/dL (11.2-15.7); Lymphocytes % 34.3 %; MCH 37.1 pg (27.0-33.0); MCHC 34.5 % (32.0-36.0); MCV 108 fL (80-95); MPV 9.4 fL (8.0-11.0); Monocytes % 11.6 %; Neutrophils % 50.9 %; Platelet Count 169 10^3/uL (130-400); RBC 3.56 10^6/uL (3.93-5.22); RDW 13.7 % (11.7-14.6); RDW-SD 55.1 fL; WBC 2.51 10^3/uL (4.4-10.8)
[2023-09-23 13:04] LABS: ALT 23 U/L (14-59); AST 26 U/L (15-37); Albumin 3.8 g/dL (3.4-5.0); Alkaline Phosphatase 73 U/L (46-116); Anion Gap 8.1 mmol/L (3-11); BUN 9 mg/dL (7-18); Bilirubin, Total 0.78 mg/dL (0.2-1.0); CO2 27.9 mmol/L (21.0-32.0); CREATININE 0.9 mg/dL (0.55-1.02); Calcium 9.2 mg/dL (8.5-10.1); Chloride 106 mmol/L (98-107); Estimated GFR 70.07 (mL/min/1.73m2); Glucose 122 mg/dL (74-106); Potassium 3.9 mmol/L (3.5-5.1); Sodium 142 mmol/L (136-145); Total Protein 6.9 g/dL (6.4-8.2)
[2023-09-23 13:24] LABS: Diff Comment Diff Reviewed; Macrocytosis 1+
[2023-09-23 13:25] LABS: Stomatocytes 2+
[2023-09-25 10:16] LABS: Cancer Ag 15-3 69 U/mL (<30)
== END 2023-09-23 03:09 | disposition home or self-care (01) ==
PROVIDERS: PCP Family Medicine; Visit Provider Internal Medicine Medical Oncology
DX: C50.411 Malignant neoplasm of upper-outer quadrant of right female breast (principal)
CPT/HCPCS: 80053; 86300; 85025

== ENCOUNTER 2023-10-20 02:30 | Outpatient (CLI) | payer MEDICARE, SELFPAY ==
[2023-10-20 14:08] LABS: Abs Immature Grans 0.01 10^3/uL (0.0-0.06); Absolute Basophil Count 0.04 10^3/uL (0.0-0.2); Absolute Eosinophil Count 0.03 10^3/uL (0.0-0.7); Absolute Monocyte Count 0.24 10^3/uL (0.1-0.8); Absolute Neutrophil Count 1.48 10^3/uL (1.2-6.7); Basophils % 1.5 %; Eosinophils % 1.1 %; HCT 37.5 % (36.0-46.0); Immature Grans % 0.4 %; Lymphocytes % 33.3 %; MCH 37.4 pg (27.0-33.0); MCHC 34.7 % (32.0-36.0); MPV 9.7 fL (8.0-11.0); Monocytes % 8.9 %; Neutrophils % 54.8 %; Platelet Count 163 10^3/uL (130-400); RBC 3.48 10^6/uL (3.93-5.22); RDW 13.8 % (11.7-14.6); RDW-SD 54.4 fL
[2023-10-20 14:09] LABS: MCV 108 fL (80-95)
[2023-10-20 14:24] LABS: Diff Comment RBC Morph Reviewed; Macrocytosis 2+
[2023-10-20 14:30] LABS: ALT 22 U/L (14-59); AST 28 U/L (15-37); Albumin 4.1 g/dL (3.4-5.0); Alkaline Phosphatase 72 U/L (46-116); Anion Gap 6.8 mmol/L (3-11); BUN 11 mg/dL (7-18); Bilirubin, Total 1.01 mg/dL (0.2-1.0); CO2 29.2 mmol/L (21.0-32.0); CREATININE 0.8 mg/dL (0.55-1.02); Calcium 9.2 mg/dL (8.5-10.1); Chloride 102 mmol/L (98-107); Estimated GFR 80.71 (mL/min/1.73m2); Glucose 92 mg/dL (74-106); Potassium 3.8 mmol/L (3.5-5.1); Sodium 138 mmol/L (136-145)
[2023-10-21 16:39] LABS: Cancer Ag 15-3 80 U/mL (<30)
== END 2023-10-20 02:31 | disposition home or self-care (01) ==
PROVIDERS: PCP Family Medicine; Visit Provider Internal Medicine Medical Oncology
DX: Z79.899 Other long term (current) drug therapy (principal); C50.411 Malignant neoplasm of upper-outer quadrant of right female breast
CPT/HCPCS: 36415; 80053; 86300; 85025

== ENCOUNTER 2023-11-13 12:59 | Outpatient (CLI) | payer MEDICARE, SELFPAY ==
--- NOTE | 2023-11-13 13:00 | RT.EKG_ITS ---
APPROVED REPORT Exam: Resting ECG Reason for Exam: follow up Patient Location: O HR:121 bpm ECG Measurements Heart Rate 121 AXIS MS 149 P 68 QRSd 87 QRS 65 QT 325 T 26 QTc 461 Conclusion Sinus tachycardia with irregular rate...V-rate 68-172, variation>10% Left atrial enlargement...P, P'>60mS, <-0.15mV V1 Frequent premature atrial contractions, runs of PACs
== END 2023-11-13 13:00 | disposition home or self-care (01) ==
LOC: DI.CARD 13:02
PROVIDERS: PCP Family Medicine; Referring Provider Family Medicine; Visit Provider Internal Medicine Cardiovascular Disease
DX: I48.91 Unspecified atrial fibrillation (principal)
CPT/HCPCS: 93010

== ENCOUNTER → 2023-11-13 12:59 | Outpatient (BNVA) | payer MEDICARE, SELFPAY | PROVIDERS: PCP Family Medicine; Referring Provider Family Medicine; Visit Provider Internal Medicine Cardiovascular Disease | DX: I48.0 Paroxysmal atrial fibrillation (principal); Z85.3 Personal history of malignant neoplasm of breast | CPT/HCPCS: 93005; 99214 ==

== ENCOUNTER 2023-11-17 03:02 | Outpatient (CLI) | payer MEDICARE, SELFPAY ==
[2023-11-17 10:35] LABS: Abs Immature Grans 0.01 10^3/uL (0.0-0.06); Absolute Basophil Count 0.02 10^3/uL (0.0-0.2); Absolute Eosinophil Count 0.03 10^3/uL (0.0-0.7); Absolute Lymphocyte Count 0.79 10^3/uL (1.2-3.4); Absolute Monocyte Count 0.26 10^3/uL (0.1-0.8); Absolute Neutrophil Count 0.78 10^3/uL (1.2-6.7); Basophils % 1.1 %; Eosinophils % 1.6 %; HCT 36.5 % (36.0-46.0); HGB 12.8 g/dL (11.2-15.7); Immature Grans % 0.5 %; Lymphocytes % 41.8 %; MCH 38.1 pg (27.0-33.0); MCHC 35.1 % (32.0-36.0); MCV 109 fL (80-95); MPV 9.6 fL (8.0-11.0); Monocytes % 13.8 %; Neutrophils % 41.2 %; Platelet Count 138 10^3/uL (130-400); RBC 3.36 10^6/uL (3.93-5.22); RDW 13.5 % (11.7-14.6); RDW-SD 54.1 fL
[2023-11-17 10:49] LABS: Diff Comment Diff Reviewed
[2023-11-17 10:51] LABS: ALT 22 U/L (14-59); AST 27 U/L (15-37); Albumin 3.8 g/dL (3.4-5.0); Alkaline Phosphatase 76 U/L (46-116); Anion Gap 3.9 mmol/L (3-11); BUN 9 mg/dL (7-18); Bilirubin, Total 1.15 mg/dL (0.2-1.0); CO2 30.1 mmol/L (21.0-32.0); CREATININE 0.9 mg/dL (0.55-1.02); Calcium 9.2 mg/dL (8.5-10.1); Chloride 107 mmol/L (98-107); Estimated GFR 70.07 (mL/min/1.73m2); Glucose 94 mg/dL (74-106); Macrocytosis 1+; Polychromasia Present; Potassium 4.1 mmol/L (3.5-5.1); Sodium 141 mmol/L (136-145); Total Protein 6.8 g/dL (6.4-8.2)
[2023-11-17 10:54] LABS: WBC 1.89 10^3/uL (4.4-10.8)
[2023-11-19 15:42] LABS: Cancer Ag 15-3 104 U/mL (<30)
== END 2023-11-17 03:03 | disposition home or self-care (01) ==
LOC: LBO 03:02
PROVIDERS: PCP Family Medicine; Visit Provider Internal Medicine Hematology & Oncology
DX: Z79.899 Other long term (current) drug therapy (principal); C50.411 Malignant neoplasm of upper-outer quadrant of right female breast; Z17.0 Estrogen receptor positive status [ER+]; D63.0 Anemia in neoplastic disease
CPT/HCPCS: 36415; 80053; 86300; 83615; 85025

== ENCOUNTER 2023-11-25 05:04 | Outpatient (CLI) | payer MEDICARE, SELFPAY ==
[2023-11-25 13:49] LABS: Abs Immature Grans 0.01 10^3/uL (0.0-0.06); Absolute Basophil Count 0.03 10^3/uL (0.0-0.2); Absolute Eosinophil Count 0.04 10^3/uL (0.0-0.7); Absolute Lymphocyte Count 0.72 10^3/uL (1.2-3.4); Absolute Monocyte Count 0.24 10^3/uL (0.1-0.8); Absolute Neutrophil Count 1.59 10^3/uL (1.2-6.7); Basophils % 1.1 %; Eosinophils % 1.5 %; HCT 37.8 % (36.0-46.0); HGB 13.1 g/dL (11.2-15.7); Immature Grans % 0.4 %; Lymphocytes % 27.4 %; MCHC 34.7 % (32.0-36.0); MCV 110 fL (80-95); MPV 10.1 fL (8.0-11.0); Monocytes % 9.1 %; Neutrophils % 60.5 %; Platelet Count 196 10^3/uL (130-400); RBC 3.45 10^6/uL (3.93-5.22); RDW 13.3 % (11.7-14.6); RDW-SD 54.6 fL; WBC 2.63 10^3/uL (4.4-10.8)
[2023-11-25 14:22] LABS: Diff Comment RBC Morph Reviewed; Macrocytosis 2+
[2023-11-25 14:25] LABS: ALT 26 U/L (14-59); AST 30 U/L (15-37); Albumin 3.6 g/dL (3.4-5.0); Alkaline Phosphatase 73 U/L (46-116); Anion Gap 8.2 mmol/L (3-11); BUN 11 mg/dL (7-18); Bilirubin, Total 1.08 mg/dL (0.2-1.0); CO2 29.8 mmol/L (21.0-32.0); CREATININE 0.8 mg/dL (0.55-1.02); Chloride 106 mmol/L (98-107); Estimated GFR 80.71 (mL/min/1.73m2); Glucose 100 mg/dL (74-106); Potassium 4.2 mmol/L (3.5-5.1); Sodium 144 mmol/L (136-145); Total Protein 6.2 g/dL (6.4-8.2)
== END 2023-11-25 05:05 | disposition home or self-care (01) ==
PROVIDERS: PCP Family Medicine; Visit Provider Nurse Practitioner Family
DX: Z79.899 Other long term (current) drug therapy (principal); C50.919 Malignant neoplasm of unspecified site of unspecified female breast
CPT/HCPCS: 36415; 80053; 85025

== ENCOUNTER 2023-12-23 01:56 | Outpatient (CLI) | payer MEDICARE, SELFPAY ==
[2023-12-23 10:10] LABS: HCT 34.2 % (36.0-46.0); HGB 11.9 g/dL (11.2-15.7); MCH 38.3 pg (27.0-33.0); MCHC 34.8 % (32.0-36.0); MCV 110 fL (80-95); MPV 9.9 fL (8.0-11.0); Platelet Count 135 10^3/uL (130-400); RBC 3.11 10^6/uL (3.93-5.22); RDW 14.2 % (11.7-14.6); RDW-SD 56.9 fL; WBC 2.02 10^3/uL (4.4-10.8)
[2023-12-23 10:30] LABS: Absolute Lymphocyte Count 1.05 10^3/uL (1.2-3.4); Absolute Neutrophil Count 0.77 10^3/uL (1.2-6.7)
[2023-12-23 10:31] LABS: ALT 20 U/L (14-59); AST 24 U/L (15-37); Albumin 3.5 g/dL (3.4-5.0); Alkaline Phosphatase 82 U/L (46-116); Anion Gap 8.6 mmol/L (3-11); BUN 11 mg/dL (7-18); Bilirubin, Total 0.72 mg/dL (0.2-1.0); CO2 29.4 mmol/L (21.0-32.0); Chloride 107 mmol/L (98-107); Diff Comment Manual Differential; Estimated GFR 61.75 (mL/min/1.73m2); Glucose 143 mg/dL (74-106); Macrocytosis 2+; Polychromasia Present; Potassium 3.6 mmol/L (3.5-5.1); Sodium 145 mmol/L (136-145); Spherocytes 2+; Total Protein 6.5 g/dL (6.4-8.2)
[2023-12-25 20:56] LABS: Cancer Ag 15-3 140 U/mL (<30)
== END 2023-12-23 01:57 | disposition home or self-care (01) ==
LOC: LBO 01:56
PROVIDERS: PCP Family Medicine; Visit Provider Internal Medicine Medical Oncology
DX: C50.411 Malignant neoplasm of upper-outer quadrant of right female breast (principal); Z17.0 Estrogen receptor positive status [ER+]; D63.0 Anemia in neoplastic disease; Z79.899 Other long term (current) drug therapy; C50.919 Malignant neoplasm of unspecified site of unspecified female breast
CPT/HCPCS: 36415; 80053; 86300; 85025

== ENCOUNTER 2023-12-30 02:25 | Outpatient (CLI) | payer MEDICARE, SELFPAY ==
[2023-12-30 10:12] LABS: Absolute Basophil Count 0.04 10^3/uL (0.0-0.2); Absolute Eosinophil Count 0.03 10^3/uL (0.0-0.7); Absolute Monocyte Count 0.28 10^3/uL (0.1-0.8); Absolute Neutrophil Count 1.35 10^3/uL (1.2-6.7); Basophils % 1.7 %; Eosinophils % 1.3 %; HCT 35.1 % (36.0-46.0); Lymphocytes % 29.2 %; MCH 37.9 pg (27.0-33.0); MCHC 34.2 % (32.0-36.0); MCV 111 fL (80-95); MPV 9.6 fL (8.0-11.0); Monocytes % 11.7 %; Neutrophils % 56.1 %; Platelet Count 193 10^3/uL (130-400); RBC 3.17 10^6/uL (3.93-5.22); RDW 14.6 % (11.7-14.6); RDW-SD 59.7 fL
[2023-12-30 10:28] LABS: ALT 20 U/L (14-59); AST 29 U/L (15-37); Albumin 3.6 g/dL (3.4-5.0); Alkaline Phosphatase 84 U/L (46-116); Anion Gap 3.9 mmol/L (3-11); BUN 8 mg/dL (7-18); Bilirubin, Total 1.01 mg/dL (0.2-1.0); CO2 31.1 mmol/L (21.0-32.0); CREATININE 0.9 mg/dL (0.55-1.02); Calcium 9.3 mg/dL (8.5-10.1); Chloride 106 mmol/L (98-107); Estimated GFR 70.07 (mL/min/1.73m2); Glucose 97 mg/dL (74-106); Potassium 3.9 mmol/L (3.5-5.1); Sodium 141 mmol/L (136-145); Total Protein 6.6 g/dL (6.4-8.2)
[2023-12-30 10:38] LABS: Macrocytosis 1+
[2024-01-01 09:50] LABS: Cancer Ag 15-3 159 U/mL (<30)
== END 2023-12-30 02:26 | disposition home or self-care (01) ==
LOC: LBO 02:26
PROVIDERS: PCP Family Medicine; Visit Provider Nurse Practitioner Family
DX: C50.411 Malignant neoplasm of upper-outer quadrant of right female breast (principal)
CPT/HCPCS: 36415; 80053; 86300; 85025

== ENCOUNTER → 2024-01-04 14:04 | Outpatient (BNVA) | payer MEDICARE, SELFPAY | PROVIDERS: PCP Family Medicine; Referring Provider Family Medicine; Visit Provider Registered Nurse | DX: I48.0 Paroxysmal atrial fibrillation (principal) | CPT/HCPCS: 99214 ==

== ENCOUNTER 2024-01-27 04:22 | Outpatient (CLI) | payer MEDICARE, SELFPAY ==
[2024-01-27 12:00] LABS: Absolute Basophil Count 0.03 10^3/uL (0.0-0.2); Absolute Eosinophil Count 0.02 10^3/uL (0.0-0.7); Absolute Lymphocyte Count 0.66 10^3/uL (1.2-3.4); Absolute Neutrophil Count 1.02 10^3/uL (1.2-6.7); Basophils % 1.5 %; HCT 37.4 % (36.0-46.0); HGB 13.1 g/dL (11.2-15.7); Lymphocytes % 32.5 %; MCH 38.1 pg (27.0-33.0); MCV 109 fL (80-95); Monocytes % 14.8 %; Neutrophils % 50.2 %; Platelet Count 159 10^3/uL (130-400); RBC 3.44 10^6/uL (3.93-5.22); RDW 14.1 % (11.7-14.6); RDW-SD 56.2 fL; WBC 2.03 10^3/uL (4.4-10.8)
[2024-01-27 12:12] LABS: Macrocytosis 1+
[2024-01-27 12:17] LABS: ALT 24 U/L (14-59); AST 31 U/L (15-37); Alkaline Phosphatase 82 U/L (46-116); BUN 11 mg/dL (7-18); Bilirubin, Total 0.85 mg/dL (0.2-1.0); CREATININE 1.1 mg/dL (0.55-1.02); Calcium 9.5 mg/dL (8.5-10.1); Chloride 104 mmol/L (98-107); Estimated GFR 55.07 (mL/min/1.73m2); Glucose 84 mg/dL (74-106); Potassium 3.8 mmol/L (3.5-5.1); Sodium 143 mmol/L (136-145); Total Protein 7.2 g/dL (6.4-8.2)
[2024-01-29 13:23] LABS: Cancer Ag 15-3 250 U/mL (<30)
== END 2024-01-27 04:23 | disposition home or self-care (01) ==
LOC: LBO 04:22
PROVIDERS: PCP Family Medicine; Visit Provider Nurse Practitioner Family
DX: Z79.899 Other long term (current) drug therapy (principal); C50.919 Malignant neoplasm of unspecified site of unspecified female breast
CPT/HCPCS: 36415; 80053; 86300; 85025

== ENCOUNTER 2024-02-01 01:46 | Outpatient (CLI) | payer MEDICARE, SELFPAY ==
--- NOTE | 2024-02-01 08:30 | DI.US_ITS ---
APPROVED REPORT EXAM: Comprehensive 2D, Doppler, and color-flow Echocardiogram Patient Location: Out-Patient Administrative Tech: Real Avila RDCS (AE) Indications: Medication management, breast cancer Conclusion Normal left ventricular wall thickness and chamber size. Ejection fraction is 55%. Wall motion is n ormal Normal right ventricular size and function Mildly dilated left atrium. Right atrial size is normal No structural valvular abnormalities are identified Mild mitral regurgitation Wall motion Left Ventricle The left ventricle is normal size. The left ventricular systolic function is normal. The left ventric ular ejection fraction is within the normal range. There is normal left ventricular wall thickness. T here is normal LV segmental wall motion. There is no ventricular septal defect visualized. LVEF is 55 %. Right Ventricle The right ventricle is normal size. The right ventricular systolic function is normal. Atria Left atrium is mildly dilated. The right atrium size is normal. The interatrial septum is intact with no evidence for an atrial septal defect. Aortic Valve Aortic valve is grossly normal in structure. There is no aortic valvular stenosis. No aortic regurgit ation is present. Mitral Valve The mitral valve is normal in structure. No evidence of mitral valve stenosis. Mild mitral regurgitat ion. Tricuspid Valve The tricuspid valve is normal in structure. There is no tricuspid valve stenosis. Trace tricuspid reg urgitation. Unable to assess PA pressure. Pulmonic Valve The pulmonary valve is normal in structure. There is no pulmonic valvular stenosis. There is no pulmo candice valvular regurgitation. Great Vessels The aortic root is normal in size. The ascending aorta is normal in size. Aortic arch is normal in ca liber. IVC is normal in size and collapses >50% with inspiration. Pericardium There is no pericardial effusion. 2D Dimensions IVSD d PLAX 0.87 cm F: 0.6-1.0 Ao Root d 2.49 cm F: 2.7 - 3.3 LVPW d PLAX 0.90 cm F: 0.6 - 1.0 Ao Asc Diam d 2.73 cm F: 2.3 - 3.1 LVID d PLAX 5.00 cm F: 3.8 - 5.2 LVDs 2.27 cm F: 2.2 - 3.5 LV EF Teichholz 85.2 % FS 54.69 % LV EDV (Teich) 118.4 mL LV ESV (Teich) 17.5 mL Stroke Vol Index (Teich) 58.66 M-Mode TAPSE 2.55 cm (M/F) >1.7 Auto EF LV EDV A4C 111.4 mL LV EDV A2C 118.6 mL LV EDV BP 113.7 mL LV ESV A4C 53.8 mL LV ESV A2C 52.9 mL LV ESV BP 52.7 mL LVEF(%) A4C 51.7 % LVEF(%) A2C 55.3 % LVEF(%) BP 53.6 % LV SV A4C 57.6 ml LV SV A2C 65.6 ml LV SV BP 61.0 ml LV CO A4C 3.1 L/min LV CO A2C 3.4 L/min LV CO BP 3.3 L/min HR A4C 54.45 BPM HR A2C 52.03 BPM LV EDV Index (BP) LV Strain Long Pk Overal Avg (s) 19.26 LA Volume LA Length A4C 4.3 cm LA Length A2C 6.0 cm LA Area A4C s 15.43 cm2 LA Area A2C s 20.64 cm2 LA Vol A4C A-L 47.45 mL LA Vol A2C A-L 60.11 mL LA Vol Biplane A-L 63.4 mL LA Vol/BSA A4C A-L LA Vol/BSA A2C A-L LA Vol/BSA BP A-L 36.9 mL/m2 LA Vol A4C MOD 44.4 mL LA Vol A2C MOD 58.6 mL LA Vol BP MOD 60.3 mL RA Volume RA Area A4C 9.7 cm2 RA ESV A4C (A-L) 19.7mL RA Vol/BSA A4C A-L RA Length A4C 4.0 cm RA ESV A4C (MOD) 20.3mL LV Diastology MV E' medial 0.092 (>0.07 m/s) MV E Vmax 0.78 (0.4-1.3 m/s) MV E/E' MED 8.43 (<14) MV A Vmax 0.75 (0.4-1.3 m/s) MV E' lateral 0.095 (>0.1 m/s) E/A Ratio 1.0 MV E/E' LAT 8.19 (<14) MV E' Average 0.094 m/s MV E/E'(average) 8.31 Aortic Valve AoV Vmax 1.09 m/s LVOT Vmax 0.99 m/s AoV Peak Grad 4.7 mmHg LVOT Peak Grad 4.0 mmHg AoV Area (Vmax) 2.18 cm2 LVOT VTI 0.253 m AoV VTI 0.280 m LVOT Mean Grad 2.3 mmHg AoV Mean Vinicius. 0.79 m/s LVOT SV 60.24 mL AoV Mean Grad 2.8 mmHg LVOT Diam s 1.70 cm AoV Area (VTI) 2.15 cm2 AV Regurg Peak Gr. 4.71 mmHg Velocity Ratio 0.91 Mitral Valve MV DT 155 (160-240 msec) MV Vmax TIPS 0.77 m/s MV Mean Grad 1.0 (<2mmHg) MV VTI 0.395 m Pulmonary Valve PV Vmax 0.79 (0.5-1.5 m/s) RVOT Vmax 0.68 m/s PV Peak Grad 2.5 mmHg RVOT Peak Gr. 1.8 mmHg PV Mean Vinicius 0.55 m/s RVOT VTI 0.179 m PV Mean Grad 1.4 mmHg RVOT Mean Gr. 1.1 mmHg
== END 2024-02-01 02:06 ==
PROVIDERS: PCP Family Medicine; Visit Provider Physician Assistant Medical
DX: Z79.899 Other long term (current) drug therapy (principal); C50.411 Malignant neoplasm of upper-outer quadrant of right female breast; C78.7 Secondary malignant neoplasm of liver and intrahepatic bile duct
CPT/HCPCS: 93306

== ENCOUNTER 2024-03-08 02:42 | Outpatient (RCR) | payer MEDICARE, SELFPAY ==
[2024-02-16 09:22] LABS: Absolute Basophil Count 0.04 10^3/uL (0.0-0.2); Absolute Eosinophil Count 0.13 10^3/uL (0.0-0.7); Absolute Lymphocyte Count 0.92 10^3/uL (1.2-3.4); Absolute Monocyte Count 0.36 10^3/uL (0.1-0.8); Absolute Neutrophil Count 1.84 10^3/uL (1.2-6.7); Basophils % 1.2 %; HCT 39.5 % (36.0-46.0); HGB 13.8 g/dL (11.2-15.7); MCH 37.3 pg (27.0-33.0); MCHC 34.9 % (32.0-36.0); MPV 10.5 fL (8.0-11.0); Monocytes % 10.9 %; Neutrophils % 55.9 %; Platelet Count 175 10^3/uL (130-400); RDW 12.5 % (11.7-14.6); RDW-SD 49.3 fL; WBC 3.29 10^3/uL (4.4-10.8)
[2024-02-16 09:23] LABS: MCV 107 fL (80-95)
[2024-02-16 09:42] LABS: ALT 27 U/L (14-59); AST 33 U/L (15-37); Albumin 3.6 g/dL (3.4-5.0); Alkaline Phosphatase 89 U/L (46-116); Anion Gap 3.6 mmol/L (3-11); BUN 11 mg/dL (7-18); Bilirubin, Total 1.09 mg/dL (0.2-1.0); CO2 31.4 mmol/L (21.0-32.0); CREATININE 0.7 mg/dL (0.55-1.02); Calcium 9.3 mg/dL (8.5-10.1); Chloride 106 mmol/L (98-107); Estimated GFR 94.73 (mL/min/1.73m2); Glucose 93 mg/dL (74-106); Potassium 4.3 mmol/L (3.5-5.1); Sodium 141 mmol/L (136-145); Total Protein 6.7 g/dL (6.4-8.2)
[2024-02-16] MEDS: Normal Saline Flush 10 ML SYR IVP (10:09)
[2024-03-08 09:37] LABS: Abs Immature Grans 0.01 10^3/uL (0.0-0.06); Absolute Basophil Count 0.03 10^3/uL (0.0-0.2); Absolute Eosinophil Count 0.28 10^3/uL (0.0-0.7); Absolute Lymphocyte Count 0.71 10^3/uL (1.2-3.4); Absolute Monocyte Count 0.32 10^3/uL (0.1-0.8); Absolute Neutrophil Count 1.61 10^3/uL (1.2-6.7); Eosinophils % 9.5 %; HCT 34.5 % (36.0-46.0); HGB 12.3 g/dL (11.2-15.7); Immature Grans % 0.3 %; MCH 36.3 pg (27.0-33.0); MCHC 35.7 % (32.0-36.0); MCV 102 fL (80-95); Monocytes % 10.8 %; Neutrophils % 54.4 %; Platelet Count 209 10^3/uL (130-400); RBC 3.39 10^6/uL (3.93-5.22); RDW 12.8 % (11.7-14.6); RDW-SD 47.1 fL; WBC 2.96 10^3/uL (4.4-10.8)
[2024-03-08 09:45] LABS: ALT 32 U/L (14-59); AST 27 U/L (15-37); Albumin 3.5 g/dL (3.4-5.0); Alkaline Phosphatase 97 U/L (46-116); Anion Gap 6.3 mmol/L (3-11); BUN 7 mg/dL (7-18); Bilirubin, Total 0.72 mg/dL (0.2-1.0); CO2 28.7 mmol/L (21.0-32.0); CREATININE 0.9 mg/dL (0.55-1.02); Calcium 8.9 mg/dL (8.5-10.1); Chloride 106 mmol/L (98-107); Estimated GFR 70.07 (mL/min/1.73m2); Glucose 166 mg/dL (74-106); Sodium 141 mmol/L (136-145); Total Protein 6.5 g/dL (6.4-8.2)
[2024-03-08] MEDS: Normal Saline Flush 10 ML SYR IVP (10:10)
[2024-03-10 10:46] LABS: Cancer Ag 15-3 168 U/mL (<30)
== END 2024-03-11 23:59 | disposition home or self-care (01) ==
LOC: INF 02:42
PROVIDERS: PCP Family Medicine; Visit Provider Nurse Practitioner Family
DX: C50.919 Malignant neoplasm of unspecified site of unspecified female breast (principal); Z79.899 Other long term (current) drug therapy; C78.7 Secondary malignant neoplasm of liver and intrahepatic bile duct
CPT/HCPCS: 36591; 80053; 86300; 85025

== ENCOUNTER 2024-04-07 02:39 | Outpatient (RCR) | payer MEDICARE, SELFPAY ==
[2024-03-29 09:18] LABS: Abs Immature Grans 0.01 10^3/uL (0.0-0.06); Absolute Basophil Count 0.03 10^3/uL (0.0-0.2); Absolute Eosinophil Count 0.24 10^3/uL (0.0-0.7); Absolute Lymphocyte Count 0.66 10^3/uL (1.2-3.4); Absolute Monocyte Count 0.43 10^3/uL (0.1-0.8); Absolute Neutrophil Count 2.04 10^3/uL (1.2-6.7); Basophils % 0.9 %; HCT 33.3 % (36.0-46.0); HGB 11.4 g/dL (11.2-15.7); Immature Grans % 0.3 %; Lymphocytes % 19.4 %; MCH 35.1 pg (27.0-33.0); MCHC 34.2 % (32.0-36.0); MCV 103 fL (80-95); MPV 9.9 fL (8.0-11.0); Monocytes % 12.6 %; Neutrophils % 59.8 %; Platelet Count 244 10^3/uL (130-400); RBC 3.25 10^6/uL (3.93-5.22); RDW-SD 52.4 fL; WBC 3.41 10^3/uL (4.4-10.8)
[2024-03-29] MEDS: Normal Saline Flush 10 ML SYR IVP (09:27)
[2024-03-29 09:36] LABS: ALT 22 U/L (14-59); AST 22 U/L (15-37); Albumin 3.1 g/dL (3.4-5.0); Alkaline Phosphatase 100 U/L (46-116); Anion Gap 9.7 mmol/L (3-11); BUN 10 mg/dL (7-18); Bilirubin, Total 0.78 mg/dL (0.2-1.0); CO2 27.3 mmol/L (21.0-32.0); CREATININE 0.8 mg/dL (0.55-1.02); Calcium 9.3 mg/dL (8.5-10.1); Chloride 106 mmol/L (98-107); Estimated GFR 80.71 (mL/min/1.73m2); Glucose 104 mg/dL (74-106); Potassium 4.1 mmol/L (3.5-5.1); Sodium 143 mmol/L (136-145); Total Protein 6.5 g/dL (6.4-8.2)
[2024-03-31 14:53] LABS: Cancer Ag 15-3 98 U/mL (<30)
[2024-04-07 09:47] LABS: Abs Immature Grans 0.01 10^3/uL (0.0-0.06); Absolute Basophil Count 0.03 10^3/uL (0.0-0.2); Absolute Eosinophil Count 0.26 10^3/uL (0.0-0.7); Absolute Lymphocyte Count 0.61 10^3/uL (1.2-3.4); Absolute Monocyte Count 0.42 10^3/uL (0.1-0.8); Basophils % 0.9 %; HCT 33.9 % (36.0-46.0); HGB 11.5 g/dL (11.2-15.7); Immature Grans % 0.3 %; Lymphocytes % 18.9 %; MCH 34.3 pg (27.0-33.0); MCHC 33.9 % (32.0-36.0); MCV 101 fL (80-95); Neutrophils % 58.9 %; Platelet Count 229 10^3/uL (130-400); RBC 3.35 10^6/uL (3.93-5.22); RDW 14.8 % (11.7-14.6); RDW-SD 54.7 fL; WBC 3.23 10^3/uL (4.4-10.8)
[2024-04-07] MEDS: Normal Saline Flush 10 ML SYR IVP (10:03)
[2024-04-07 10:08] LABS: ALT 22 U/L (14-59); AST 23 U/L (15-37); Albumin 3.2 g/dL (3.4-5.0); Alkaline Phosphatase 100 U/L (46-116); Anion Gap 9.8 mmol/L (3-11); BUN 8 mg/dL (7-18); CO2 28.2 mmol/L (21.0-32.0); CREATININE 0.7 mg/dL (0.55-1.02); Calcium 9.3 mg/dL (8.5-10.1); Chloride 106 mmol/L (98-107); Estimated GFR 94.73 (mL/min/1.73m2); Glucose 106 mg/dL (74-106); Sodium 144 mmol/L (136-145); Total Protein 6.4 g/dL (6.4-8.2)
== END 2024-04-08 23:59 | disposition home or self-care (01) ==
LOC: INF 02:39
PROVIDERS: PCP Family Medicine; Visit Provider Nurse Practitioner Family
DX: C50.919 Malignant neoplasm of unspecified site of unspecified female breast (principal); C78.7 Secondary malignant neoplasm of liver and intrahepatic bile duct; Z79.899 Other long term (current) drug therapy
CPT/HCPCS: 36591; 80053; 86300; 85025

== ENCOUNTER 2024-04-15 15:18 | Emergency (ER) | payer MEDICARE, SELFPAY ==
[2024-04-15] VITALS (22 sets, daily range): BP systolic 120–150; BP diastolic 57–79; PULSE 61–79; RESP 12–22; TEMP 36.6; O2SAT 97–100
--- NOTE | 2024-04-15 15:15 | RT.EKG_ITS ---
APPROVED REPORT Exam: Resting ECG Reason for Exam: weakness Patient Location: E HR:70 bpm ECG Measurements Heart Rate 70 AXIS NE 160 P 62 QRSd 87 QRS 60 QT 374 T 32 QTc 405 Conclusion Sinus rhythm...normal P axis, V-rate 60- 99 Probable left atrial enlargement...P >50mS, <-0.10mV V1 I have reviewed and interpreted ECG and agree with software generated interpretation.
--- NOTE | 2024-04-15 15:43 | ED.GENADUL_ITS ---
Discharge Plan Disposition Patient Disposition: Home Condition: Stable Discharge Details Clinical Impression: Acute UTI, Fatigue due to treatment Primary Care Provider: Griselda Mojica ED Provider: Rosa Hicks Home Meds and New Rx's Prescriptions: New cephalexin 500 mg capsule 500 mg PO BID 7 Days Qty: 14 0RF Rx Instructions: Take 1 tablet by mouth twice daily for the next 7 days Continued metoprolol succinate 25 mg tablet extended release 24 hr 25 mg PO DAILY Qty: 90 3RF calcium carbonate-vitamin D3 500 mg-10 mcg (400 unit) tablet 1 tab PO BID multivitamin Tablet 1 tab PO DAILY pyridoxine (vitamin B6) 100 mg tablet 100 mg PO QID mecobalamin (vitamin B12) [B12 Active] 1,000 mcg tablet,chewable 1,000 mcg PO DAILY Eliquis 5 mg tablet 5 mg PO BID fulvestrant 250 mg/5 mL syringe 500 mg IM QMONTH Rx Instructions: may divide dose into 2 equally divided injections; one into each buttock zoledronic acid 4 mg/5 mL solution 1 mg IV .q6 months Rx Instructions: administer over at least 15 mins venlafaxine 37.5 mg capsule,extended release 24hr 37.5 mg PO ONCE Patient Comments: TAKE ONE CAPSULE BY MOUTH EVERY DAY Discharge Instructions Instructions: Urinary Tract Infection, Adult ED, Fatigue ED Additional Instructions: At this time I am concerned for possible early urinary tract infection. Please take the antibiotic as directed. Take with yogurt or a probiotic. The rest of your labs are largely unremarkable. No significant reason to suggest any other infection or dehydration. Your electrolytes are within normal limits. Follow up with primary care provider in 3-5 days. Return to ED sooner if any worsening or concerns. Please discuss your symptoms with your oncology team if they continue. Thank you for allowing us to care for you today. Referrals: Griselda Mojica MD [Primary Care Provider] - 5 days HPI General Mode of arrival: ambulatory . Date/Time Provider Initiated Documentation: 04/15/24 15:32 . Limitations to Documentation: no limitations . Information obtained by: patient, family, RN notes reviewed and old records reviewed . HPI Narrative: 68-year-old female presents to the ER with increased fatigue, unable to get up and do activities of daily living. Her last infusion, on April 07 of a new chemotherapy. She reports denies any nausea vomiting diarrhea denies any fever or chills shortness of breath. She does report some increased headaches. She had an oriented x 4 upon arrival no focal neurodeficits noted. Does have an history of stage IV breast cancer with mets to her liver. Other history includes polyneuropathy, hyper degeneration patient. She does take apixaban. Related Data Home Medications ?Medication ?Instructions ?Recorded ?Confirmed calcium 500 mg (as 1 tab PO BID 01/30/22 04/15/24 carbonate)-vitamin D3 10 mcg (400 unit) tablet multivitamin 1 tab PO DAILY 01/30/22 04/15/24 pyridoxine (vitamin B6) 100 mg 100 mg PO QID 01/30/22 04/15/24 tablet venlafaxine 37.5 mg 37.5 mg PO ONCE 06/08/23 04/15/24 capsule,extended release 24 hr apixaban 5 mg tablet (Eliquis) 5 mg PO BID 09/25/23 04/15/24 fulvestrant 250 mg/5 mL 500 mg IM QMONTH 09/25/23 04/15/24 intramuscular syringe mecobalamin (vitamin B12) 1,000 1,000 mcg PO DAILY 09/25/23 04/15/24 mcg chewable tablet (B12 Active) zoledronic acid 4 mg/5 mL 1 mg IV .q6 months 09/25/23 04/15/24 intravenous solution metoprolol succinate 25 mg 25 mg PO DAILY #90 tabs 11/13/23 04/15/24 tablet,extended release 24 hr cephalexin 500 mg capsule 500 mg PO BID UTI 7 days #14 caps 04/15/24 Previous Rx's ?Medication ?Instructions ?Recorded metoprolol succinate 25 mg 25 mg PO DAILY #90 tabs 11/13/23 tablet,extended release 24 hr cephalexin 500 mg capsule 500 mg PO BID UTI 7 days #14 caps 04/15/24 Allergies Allergy/AdvReac Type Severity Reaction Status Date / Time No Known Allergies Allergy Verified 04/15/24 15:28 General Stated Complaint: GenMedical SUDHEER: 3 Review of Systems All systems reviewed & are unremarkable except as noted in HPI and below Exam Narrative Exam Narrative: Constitutional: Alert and oriented x3. Appears stated age. Normal body habitus. Head: Normocephalic, no trauma. Eyes: Pupils PERRL, Red reflex noted, EOM's intact. Eyelids symmetrical without lesions, discharge, or swelling. ENT: Bilateral TM's WNL, External ear normal to inspection, no mastoid TTP, swelling, or erythema, Nasal turbinates WNL, no nasal discharge. Normal dentition, Posterior pharynx WNL, no exudate. Chest: RRR, Normal S1, S2, distal pulses intact. Resp: Lungs clear to auscultation bilaterally, no wheezes, rales, or rhonchi. Abdomen: Soft, non-distended, Normoactive bowel sounds all 4 quads. Musculoskeletal: Normal gait, Moves all 4 extremities without difficulty. Skin: No suspicious rashes or lesions. Capillary refill less than 2 sec. Neurologic: Cranial nerves II-XII intact. Alert and oriented x 3. Motor: No deficits noted. Sensory: Intact bilaterally all 4 extremities. Hematologic/Lymphatic: No ecchymosis, no lymphadenopathy. Course Vital Signs Vital signs: Vital Signs Temperature 36.6 C 04/15/24 15:22 Pulse 73 04/15/24 15:22 Respiratory Rate 14 04/15/24 15:22 Blood Pressure 138/69 04/15/24 15:22 Pulse Oximetry 99 04/15/24 15:22 Temperature 36.6 C 04/15/24 15:22 Temperature Source Temporal Artery Scan 04/15/24 15:22 Pulse 73 04/15/24 15:22 Respiratory Rate 14 04/15/24 15:22 Blood Pressure 138/69 04/15/24 15:22 Blood Pressure Position Supine 04/15/24 15:22 Pulse Oximetry 99 04/15/24 15:22 Oxygen Delivery Method Room Air 04/15/24 15:22 Oxygen Flow Rate 0 04/15/24 15:22 Pain Level 0 04/15/24 15:22 Medical Decision Making 68-year-old female presents to the ER with increased fatigue, unable to get up and do activities of daily living. Her last infusion, on April 07 chemotherapy. She reports denies any nausea vomiting diarrhea denies any fever or chills shortness of breath. She does report some increased headaches. She had an oriented x 4 upon arrival no focal neurodeficits noted. Does have an history of stage IV breast cancer with mets to her liver. Other history includes polyneuropathy, hyper degeneration patient. She does take apixaban. Workup ordered including CBC CMP lipase, urinalysis, troponin, Fluvid. At this time labs are largely at baseline. CBC shows white blood cell count of 3.37, hemoglobin 11 [place] at 32 neutrophils 2.23, CMP largely within normal limits glucose 171 negative COVID flu RSV. Urinalysis is pending at this time. Urinalysis shows moderate leukocytosis however 0-2 WBCs no epithelials culture not indicated at this time however due to patient's immunosuppression will treat for possible UTI as the cause for her symptoms. Will add on a urine culture. Will give cephalexin for 7 days. And discharge to home. Discussed labs with patient and family who verbalized understanding. All their questions were answered to the best of my ability. I did encourage them to speak with the oncology team if continued symptoms or to return to the emergency department. This text was generated using [employer] system, please disregard any oddities of phrase or misspellings. Patient remained hemodynamically stable throughout the remainder of her stay. Medical Records Medical records reviewed: Yes I reviewed the patient's medical records. Imaging Data Radiologic Study: Imaging: X-Ray Radiologist's impression: FINDINGS: HEART: Normal size. Aorta: Not dilated. PULMONARY VASCULATURE: Normal. MEDIASTINUM: Unremarkable. LUNGS: Mild fibrotic changes. PLEURAL SPACE: No pleural effusion or pneumothorax. BONE:Stable kyphosis lower thoracic spine. SOFT TISSUES: Port over right chest. IMPRESSION: No acute abnormality. Lab Data Lab results reviewed: Yes I reviewed the patient's lab results. Labs: 04/15/24 16:25 Urine - Clean Catch Urine Culture - Pending Laboratory Tests Range/Units 04/15/24 04/15/24 04/15/24 15:52 16:25 17:00 WBC (4.4-10.8) 10^3/uL 3.37 L RBC (3.93-5.22) 10^6/uL 3.16 L Hgb (11.2-15.7) g/dL 11.0 L Hct (36.0-46.0) % 32.0 L MCV (80-95) fL 101 H MCH (27.0-33.0) pg 34.8 H MCHC (32.0-36.0) % 34.4 RDW (11.7-14.6) % 14.1 Plt Count (130-400) 10^3/uL 144 MPV (8.0-11.0) fL 10.2 Immature Gran % % 0.3 Neutrophils % % 66.2 Lymphocytes % % 21.4 Monocytes % % 5.9 Eosinophils % % 5.6 Basophils % % 0.6 Nucleated RBC % (0.0-0.3) % 0.0 Absolute Neutrophils (1.2-6.7) 10^3/uL 2.23 Absolute Lymphocytes (1.2-3.4) 10^3/uL 0.72 L Absolute Monocytes (0.1-0.8) 10^3/uL 0.20 Absolute Eosinophils (0.0-0.7) 10^3/uL 0.19 Absolute Basophils (0.0-0.2) 10^3/uL 0.02 PT (9.1-11.1) sec 11.0 INR (0.9-1.1) 1.1 APTT (20.6-30.2) sec 22.7 Sodium (136-145) mmol/L 138 Potassium (3.5-5.1) mmol/L 3.7 Chloride (98-107) mmol/L 104 Carbon Dioxide (21.0-32.0) mmol/L 26.2 Anion Gap (3-11) mmol/L 7.8 BUN (7-18) mg/dL 17 Creatinine (0.55-1.02) mg/dL 0.7 Est GFR (CKD-EPI 2020) (mL/min/1.73m2) 94.73 Glucose (74-106) mg/dL 171 H Calcium (8.5-10.1) mg/dL 9.2 Magnesium (1.8-2.4) mg/dL 1.8 Total Bilirubin (0.2-1.0) mg/dL 0.6 AST (15-37) U/L 21 ALT (14-59) U/L 26 Alkaline Phosphatase (46-116) U/L 85 Troponin I (<or=51) ng/L 8 12 Total Protein (6.4-8.2) g/dL 5.9 L Albumin (3.4-5.0) g/dL 2.9 L Lipase (<78) U/L 30 Urine Color (Yellow) Yellow Urine Clarity (Clear) Clear Urine pH (5-8) 6.0 Ur Specific [place] (1.005-1.025) 1.015 Urine Protein (Neg-Trace) mg/dL Negative Urine Ketones (Negative) mg/dL Negative Urine Blood (Negative) Negative Urine Nitrite (Negative) Negative Urine Bilirubin (Negative) Negative Urine Urobilinogen (Up to 0.2) mg/dL 1.0 H Ur Leukocyte Esterase (Negative) Moderate H Urine RBC (0-2) HPF Negative Urine WBC (0-5) HPF 0-2 Ur Epithelial Cells (Negative) HPF Negative Urine Crystals (Negative) HPF Negative Urine Bacteria (Negative) HPF Negative Urine Casts (Negative) LPF Negative Urine Mucus (Negative) Negative Ur Culture Indicated? No Urine Glucose (Negative) mg/dL Negative COVID-19 Source Nasopharynx SARS-CoV-2 (PCR) (Negative) Negative Influenza Type A (PCR) (Negative) Negative Influenza Type B (PCR) (Negative) Negative RSV (PCR) (Negative) Negative Range/Units 04/15/24 18:35 WBC (4.4-10.8) 10^3/uL RBC (3.93-5.22) 10^6/uL Hgb (11.2-15.7) g/dL Hct (36.0-46.0) % MCV (80-95) fL MCH (27.0-33.0) pg MCHC (32.0-36.0) % RDW (11.7-14.6) % Plt Count (130-400) 10^3/uL MPV (8.0-11.0) fL Immature Gran % % Neutrophils % % Lymphocytes % % Monocytes % % Eosinophils % % Basophils % % Nucleated RBC % (0.0-0.3) % Absolute Neutrophils (1.2-6.7) 10^3/uL Absolute Lymphocytes (1.2-3.4) 10^3/uL Absolute Monocytes (0.1-0.8) 10^3/uL Absolute Eosinophils (0.0-0.7) 10^3/uL Absolute Basophils (0.0-0.2) 10^3/uL PT (9.1-11.1) sec INR (0.9-1.1) APTT (20.6-30.2) sec Sodium (136-145) mmol/L Potassium (3.5-5.1) mmol/L Chloride (98-107) mmol/L Carbon Dioxide (21.0-32.0) mmol/L Anion Gap (3-11) mmol/L BUN (7-18) mg/dL Creatinine (0.55-1.02) mg/dL Est GFR (CKD-EPI 2020) (mL/min/1.73m2) Glucose (74-106) mg/dL Calcium (8.5-10.1) mg/dL Magnesium (1.8-2.4) mg/dL Total Bilirubin (0.2-1.0) mg/dL AST (15-37) U/L ALT (14-59) U/L Alkaline Phosphatase (46-116) U/L Troponin I (<or=51) ng/L Cancelled Total Protein (6.4-8.2) g/dL Albumin (3.4-5.0) g/dL Lipase (<78) U/L Urine Color (Yellow) Urine Clarity (Clear) Urine pH (5-8) Ur Specific [place] (1.005-1.025) Urine Protein (Neg-Trace) mg/dL Urine Ketones (Negative) mg/dL Urine Blood (Negative) Urine Nitrite (Negative) Urine Bilirubin (Negative) Urine Urobilinogen (Up to 0.2) mg/dL Ur Leukocyte Esterase (Negative) Urine RBC (0-2) HPF Urine WBC (0-5) HPF Ur Epithelial Cells (Negative) HPF Urine Crystals (Negative) HPF Urine Bacteria (Negative) HPF Urine Casts (Negative) LPF Urine Mucus (Negative) Ur Culture Indicated? 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) Postnasal drip (Acute) Sensorineural hearing loss of left ear (Acute) Mixed conductive and sensorineural hearing loss of right ear with restricted hearing of left ear (Acute) Chest pain (Acute) Thickening of skin of breast (Acute) Medical History FH: mastectomy History of melanoma History of blood transfusion Trigger finger, right ring finger Osteoporosis Boniva 5-6 yes, stopped 09/2014, Prolia 03/2020 Mild memory disturbance Chronic fatigue Melanoma in situ Hx of breast cancer Onychomycosis of toenail Acute otitis media, right Obesity Perforated ear drum Gastroesophageal reflux disease Basal cell carcinoma, face Osteopenia Surgical History H/O mastectomy right simple complete 06/27/22 Hysterectomy, Laparoscopic Supracervical Colonoscopy - MAC (12/03/16) Family History Sister Heart failure Hypertension Diabetes Mother , at 54 amyotrophic lateral sclerosis Amyotrophic lateral sclerosis (ALS) Father , age 86 coronary artherosclerosis Coronary atherosclerosis Diabetes Social History Smoking/Tobacco Use Status: Former Tobacco Use Quit Date: 02/09/94 Pack-years: 2 Smoking risk assessment performed?: Yes Alcohol Intake: current Alcohol Intake frequency: 0-2 drinks per day Alcohol type: hard liquor Drug use: Never Substance use type: does not use Household members: spouse Housing: house 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
[2024-04-15 16:02] LABS: Abs Immature Grans 0.01 10^3/uL (0.0-0.06); Absolute Basophil Count 0.02 10^3/uL (0.0-0.2); Absolute Eosinophil Count 0.19 10^3/uL (0.0-0.7); Absolute Lymphocyte Count 0.72 10^3/uL (1.2-3.4); Absolute Neutrophil Count 2.23 10^3/uL (1.2-6.7); Basophils % 0.6 %; Eosinophils % 5.6 %; Immature Grans % 0.3 %; Lymphocytes % 21.4 %; MCH 34.8 pg (27.0-33.0); MCHC 34.4 % (32.0-36.0); MCV 101 fL (80-95); MPV 10.2 fL (8.0-11.0); Monocytes % 5.9 %; Neutrophils % 66.2 %; Platelet Count 144 10^3/uL (130-400); RBC 3.16 10^6/uL (3.93-5.22); RDW 14.1 % (11.7-14.6); RDW-SD 52.7 fL; WBC 3.37 10^3/uL (4.4-10.8)
[2024-04-15 16:14] LABS: INR 1.1 (0.9-1.1); PTT Activated 22.7 sec (20.6-30.2)
--- NOTE | 2024-04-15 16:30 | DI.RAD_ITS ---
Exam(s) XR CHEST 2V PA LATERAL EXAM: XR CHEST 2V PA LATERAL CLINICAL HISTORY: Fatigue TECHNIQUE: 2D digital imaging was performed. Two views. COMPARISON: CR XR CHEST 2V PA LATERAL from 07/30/2023 FINDINGS: HEART: Normal size. Aorta: Not dilated. PULMONARY VASCULATURE: Normal. MEDIASTINUM: Unremarkable. LUNGS: Mild fibrotic changes. PLEURAL SPACE: No pleural effusion or pneumothorax. BONE:Stable kyphosis lower thoracic spine. SOFT TISSUES: Port over right chest. IMPRESSION: No acute abnormality. DATA REPOSITORY: RADIATION DOSE DELIVERED:
[2024-04-15 16:31] LABS: ALT 26 U/L (14-59); AST 21 U/L (15-37); Albumin 2.9 g/dL (3.4-5.0); Alkaline Phosphatase 85 U/L (46-116); Anion Gap 7.8 mmol/L (3-11); BUN 17 mg/dL (7-18); Bilirubin, Total 0.6 mg/dL (0.2-1.0); CO2 26.2 mmol/L (21.0-32.0); CREATININE 0.7 mg/dL (0.55-1.02); Calcium 9.2 mg/dL (8.5-10.1); Chloride 104 mmol/L (98-107); Estimated GFR 94.73 (mL/min/1.73m2); Glucose 171 mg/dL (74-106); Lipase 30 U/L (<78); Magnesium 1.8 mg/dL (1.8-2.4); Potassium 3.7 mmol/L (3.5-5.1); Sodium 138 mmol/L (136-145); Total Protein 5.9 g/dL (6.4-8.2); Troponin I 8 ng/L (<or=51)
[2024-04-15 16:36] LABS: COVID-19 PCR Negative (Negative); Influenza A PCR Negative (Negative); Influenza B PCR Negative (Negative); RSV PCR Negative (Negative); Source Nasopharynx
[2024-04-15] MEDS: Normal Saline 500 ML IV (17:20)
[2024-04-15 17:39] LABS: Troponin I 12 ng/L (<or=51)
[2024-04-15 18:29] LABS: Bilirubin Negative (Negative); Blood Negative (Negative); Clarity Clear (Clear); Glucose Negative (Negative); Ketones Negative (Negative); Leukocyte Esterase Moderate (Negative); Nitrite Negative (Negative); Specific Gravity 1.015 (1.005-1.025)
[2024-04-15 18:35] LABS: Bacteria Negative HPF (Negative); C & S Indicated? No; Casts Negative LPF (Negative); Crystals Negative HPF (Negative); Epithelial Cells Negative HPF (Negative); Mucus Negative (Negative); RBC Negative HPF (0-2); WBC 0-2 HPF (0-5)
[2024-04-15] MEDS: Cephalexin 500 MG CAP PO (19:03)
== END 2024-04-15 19:16 | disposition home or self-care (01) ==
PROVIDERS: Emergency Provider Registered Nurse Emergency; PCP Family Medicine
DX: R53.0 Neoplastic (malignant) related fatigue (principal); N39.0 Urinary tract infection, site not specified; C50.911 Malignant neoplasm of unspecified site of right female breast; C78.7 Secondary malignant neoplasm of liver and intrahepatic bile duct; I48.91 Unspecified atrial fibrillation; Z79.01 Long term (current) use of anticoagulants; Z92.21 Personal history of antineoplastic chemotherapy; Z87.891 Personal history of nicotine dependence
CPT/HCPCS: 80053; 83690; 87637; 93005; 96360; 99285; 71046; 81003; 81015; 83735; 84484; 85025; 85610; 85730; 87086; 93010

== ENCOUNTER 2024-04-27 02:17 | Outpatient (CLI) | payer MEDICARE, SELFPAY ==
--- NOTE | 2024-04-27 12:30 | DI.US_ITS ---
APPROVED REPORT EXAM: Comprehensive 2D, Doppler, and color-flow Echocardiogram Patient Location: Out-Patient [employer] Teacher: Real Avila RDCS (AE) Indications: Cardiotoxic medication management Other Information Study Quality: Fair Conclusion Normal left ventricular wall thickness and chamber size. Ejection fraction is 55%. Wall motion is n ormal Normal right ventricular size and function Both atria are normal in size There is no structural or hemodynamically significant valvular disease Wall motion Left Ventricle The left ventricle is normal size. Left ventricular systolic function is normal There is normal left ventricular wall thickness. There is normal LV segmental wall motion. There is no ventricular septal defect visualized. LVEF is 55%. Right Ventricle The right ventricle is normal size. The right ventricular systolic function is normal. Atria The left atrium size is normal. The right atrium size is normal. The interatrial septum is intact wit h no evidence for an atrial septal defect. Aortic Valve The aortic valve is normal in structure. Aortic valve is trileaflet. There is no aortic valvular sten osis. No aortic regurgitation is present. Mitral Valve The mitral valve is normal in structure. No evidence of mitral valve stenosis. Trace mitral regurgita tion. Tricuspid Valve The tricuspid valve is normal in structure. There is no tricuspid valve stenosis. Trace tricuspid reg urgitation. Pulmonic Valve The pulmonary valve is normal in structure. There is no pulmonic valvular stenosis. Trivial pulmonic regurgitation. Great Vessels The aortic root is normal in size. The ascending aorta is normal in size. Aortic arch is normal in ca liber. IVC is normal in size and collapses >50% with inspiration. Pericardium There is no pericardial effusion. 2D Dimensions IVSD d PLAX 0.70 cm F: 0.6-1.0 Ao Root d 2.53 cm F: 2.7 - 3.3 LVPW d PLAX 0.72 cm F: 0.6 - 1.0 Ao Asc Diam d 2.98 cm F: 2.3 - 3.1 LVID d PLAX 5.00 cm F: 3.8 - 5.2 LVDs 3.41 cm F: 2.2 - 3.5 FS 31.90 % LV EDV (Teich) 118.5 mL LV ESV (Teich) 47.8 mL Stroke Vol Index (Teich) 41.52 M-Mode TAPSE 2.20 cm (M/F) >1.7 Auto EF LV EDV A4C 81.3 mL LV EDV A2C 112.3 mL LV EDV BP 95.3 mL LV ESV A4C 35.0 mL LV ESV A2C 48.8 mL LV ESV BP 41.3 mL LVEF(%) A4C 56.3 % LVEF(%) A2C 56.8 % LVEF(%) BP 56.5 % LV SV A4C 46.3 ml LV SV A2C 63.5 ml LV SV BP 54.0 ml LV CO A4C 2.7 L/min LV CO A2C 3.7 L/min LV CO BP 3.1 L/min HR A4C 57.66 BPM HR A2C 57.86 BPM LV EDV Index (BP) LA Volume LA Length A4C 5.0 cm LA Length A2C 4.8 cm LA Area A4C s 12.54 cm2 LA Area A2C s 13.04 cm2 LA Vol A4C A-L 26.79 mL LA Vol A2C A-L 30.12 mL LA Vol Biplane A-L 29.0 mL LA Vol/BSA A4C A-L LA Vol/BSA A2C A-L LA Vol/BSA BP A-L 17.0 mL/m2 LA Vol A4C MOD 25.9 mL LA Vol A2C MOD 28.8 mL LA Vol BP MOD 27.0 mL RA Volume RA Area A4C 5.9 cm2 RA ESV A4C (A-L) 9.6mL RA Vol/BSA A4C A-L RA Length A4C 3.0 cm RA ESV A4C (MOD) 9.9mL LV Diastology MV E' medial 0.083 (>0.07 m/s) MV E Vmax 0.88 (0.4-1.3 m/s) MV E/E' MED 10.55 (<14) MV A Vmax 0.70 (0.4-1.3 m/s) MV E' lateral 0.110 (>0.1 m/s) E/A Ratio 1.3 MV E/E' LAT 7.98 (<14) MV E' Average 0.097 m/s MV E/E'(average) 9.08 Aortic Valve AoV Vmax 1.44 m/s LVOT Vmax 1.26 m/s AoV Peak Grad 8.3 mmHg LVOT Peak Grad 6.3 mmHg AoV Area (Vmax) 2.63 cm2 LVOT VTI 0.284 m AoV VTI 0.309 m LVOT Mean Grad 3.6 mmHg AoV Mean Vinicius. 0.98 m/s LVOT SV 85.85 mL AoV Mean Grad 4.5 mmHg LVOT Diam s 1.95 cm AoV Area (VTI) 2.78 cm2 AV Regurg Peak Gr. 8.33 mmHg Velocity Ratio 0.88 Mitral Valve MV DT 216 (160-240 msec) MV Vmax TIPS 0.81 m/s MV Mean Grad 1.0 (<2mmHg) MV VTI 0.331 m Pulmonary Valve PV Vmax 1.10 (0.5-1.5 m/s) RVOT Vmax 0.67 m/s PV Peak Grad 4.9 mmHg RVOT Peak Gr. 1.8 mmHg PV Mean Vinicius 0.75 m/s RVOT VTI 0.172 m PV Mean Grad 2.6 mmHg RVOT Mean Gr. 1.0 mmHg Tricuspid Valve RA Pressure 3.00 mmHg TR Vmax 2.32 m/s TV S' 0.11 m/s TR Peak Grad 21.4 mmHg RVSP (TR) 24.5 mmHg
== END 2024-04-27 02:37 ==
PROVIDERS: PCP Family Medicine; Visit Provider Internal Medicine Cardiovascular Disease
DX: Z79.899 Other long term (current) drug therapy (principal)
CPT/HCPCS: 93306

== ENCOUNTER 2024-04-27 02:17 | Outpatient (CLI) | payer MEDICARE, SELFPAY ==
--- NOTE | 2024-04-27 | DI.MRI_ITS ---
Exam(s) MR BRAIN WO/W EXAM: MR BRAIN WO/W CLINICAL HISTORY: BREAST CA,C50.919,NEW DAILY HEADACHES,. TECHNIQUE: Multiplanar multisequence MRI of the brain was performed. CONTRAST MATERIAL: IV Contrast: 13 ML of Dotarem contrast administered. COMPARISON: No exams were available for comparison FINDINGS: VENTRICLES AND EXTRA AXIAL SPACES: Normal in size and morphology for the patient's age. HEMORRHAGE: None. CEREBRAL PARENCHYMA: No focus of restricted diffusion to suggest acute infarct. No space-occupying le adin identified. Multiple bilateral high signal foci in the white matter, nonspecific but likely ref lecting chronic microvascular ischemia. No periventricular or corpus callosum lesions. BRAINSTEM/CEREBELLUM: Normal. CALVARIUM: Normal. ENHANCEMENT: No suspicious enhancement identified. VISUALIZED PARANASAL SINUSES/MASTOIDS: Mucous retention cyst floor of the right maxillary sinus. Orbits: Unremarkable. Pituitary: Not enlarged. Vasculature: Normal flow voids. IMPRESSION: No evidence of metastatic disease. Multiple high signal foci in the white matter likely reflecting chronic microvascular disease. DATA REPOSITORY:
[2024-04-27] MEDS: Gadoterate meglumine 20 ML SYRINGE 13 ML IVP (14:19)
[2024-04-27] MEDS: Normal Saline Flush 10 ML SYR IJ (14:20)
== END 2024-04-27 02:37 ==
LOC: DI 02:18
PROVIDERS: PCP Family Medicine; Visit Provider Nurse Practitioner Family
DX: C50.411 Malignant neoplasm of upper-outer quadrant of right female breast (principal); I25.85 Chronic coronary microvascular dysfunction
CPT/HCPCS: 70553

== ENCOUNTER 2024-04-27 12:00 | Outpatient (RCR) | payer MEDICARE, SELFPAY ==
[2024-04-26] MEDS: Normal Saline Flush 10 ML SYR IVP (09:25)
[2024-04-26 09:30] LABS: Abs Immature Grans 0.02 10^3/uL (0.0-0.06); Absolute Basophil Count 0.03 10^3/uL (0.0-0.2); Absolute Eosinophil Count 0.31 10^3/uL (0.0-0.7); Absolute Lymphocyte Count 0.45 10^3/uL (1.2-3.4); Absolute Monocyte Count 0.38 10^3/uL (0.1-0.8); Absolute Neutrophil Count 2.17 10^3/uL (1.2-6.7); Basophils % 0.9 %; Eosinophils % 9.2 %; HCT 30.9 % (36.0-46.0); HGB 10.6 g/dL (11.2-15.7); Immature Grans % 0.6 %; Lymphocytes % 13.4 %; MCH 34.3 pg (27.0-33.0); MCHC 34.3 % (32.0-36.0); MCV 100 fL (80-95); MPV 9.7 fL (8.0-11.0); Monocytes % 11.3 %; Neutrophils % 64.6 %; Platelet Count 251 10^3/uL (130-400); RBC 3.09 10^6/uL (3.93-5.22); RDW 14.9 % (11.7-14.6); RDW-SD 54.1 fL; WBC 3.36 10^3/uL (4.4-10.8)
[2024-04-26 09:50] LABS: ALT 25 U/L (14-59); AST 26 U/L (15-37); Albumin 3.1 g/dL (3.4-5.0); Alkaline Phosphatase 79 U/L (46-116); BUN 7 mg/dL (7-18); CREATININE 0.7 mg/dL (0.55-1.02); Chloride 102 mmol/L (98-107); Estimated GFR 94.73 (mL/min/1.73m2); Glucose 107 mg/dL (74-106); Sodium 139 mmol/L (136-145); Total Protein 6.5 g/dL (6.4-8.2)
[2024-04-27] MEDS: Normal Saline Flush 10 ML SYR IVP (12:02)
[2024-04-28 14:36] LABS: Cancer Ag 15-3 62 U/mL (<30)
== END 2024-05-09 23:59 | disposition home or self-care (01) ==
LOC: INF 12:00
PROVIDERS: PCP Family Medicine; Visit Provider Nurse Practitioner Family
DX: Z79.899 Other long term (current) drug therapy (principal); C78.7 Secondary malignant neoplasm of liver and intrahepatic bile duct; D63.0 Anemia in neoplastic disease; C50.411 Malignant neoplasm of upper-outer quadrant of right female breast
CPT/HCPCS: 36591; 80053; 86300; 96523; 85025

== ENCOUNTER 2024-06-14 09:30 | Outpatient (RCR) | payer MEDICARE, SELFPAY ==
[2024-06-09] MEDS: Normal Saline Flush 10 ML SYR IVP (12:58)
[2024-06-09 13:23] LABS: Abs Immature Grans 0.01 10^3/uL (0.0-0.06); Absolute Basophil Count 0.03 10^3/uL (0.0-0.2); Absolute Eosinophil Count 0.28 10^3/uL (0.0-0.7); Absolute Lymphocyte Count 0.64 10^3/uL (1.2-3.4); Absolute Monocyte Count 0.46 10^3/uL (0.1-0.8); Absolute Neutrophil Count 2.86 10^3/uL (1.2-6.7); Basophils % 0.7 %; Eosinophils % 6.5 %; HCT 35.2 % (36.0-46.0); HGB 11.5 g/dL (11.2-15.7); Immature Grans % 0.2 %; MCH 34.3 pg (27.0-33.0); MCHC 32.7 % (32.0-36.0); MCV 105 fL (80-95); MPV 10.1 fL (8.0-11.0); Monocytes % 10.7 %; Neutrophils % 66.9 %; Platelet Count 248 10^3/uL (130-400); RBC 3.35 10^6/uL (3.93-5.22); RDW-SD 62.4 fL; WBC 4.28 10^3/uL (4.4-10.8)
[2024-06-09 13:27] LABS: Diff Comment RBC Morph Reviewed; Macrocytosis 2+
[2024-06-09 13:42] LABS: ALT 27 U/L (14-59); AST 38 U/L (15-37); Albumin 2.8 g/dL (3.4-5.0); Alkaline Phosphatase 108 U/L (46-116); Anion Gap 8.3 mmol/L (3-11); BUN 7 mg/dL (7-18); Bilirubin, Total 0.7 mg/dL (0.2-1.0); CO2 27.7 mmol/L (21.0-32.0); CREATININE 0.6 mg/dL (0.55-1.02); Calcium 9.4 mg/dL (8.5-10.1); Chloride 106 mmol/L (98-107); Estimated GFR 97.71 (mL/min/1.73m2); FREE T4 0.74 ng/dL (0.76-1.46); Glucose 135 mg/dL (74-106); Potassium 4.2 mmol/L (3.5-5.1); Sodium 142 mmol/L (136-145); TSH 13.94 uIU/mL (0.36-3.74)
[2024-06-13 12:32] LABS: Cancer Ag 15-3 83 U/mL (<30)
[2024-06-14] MEDS: Normal Saline Flush 10 ML SYR IVP (09:25)
[2024-06-14 10:20] LABS: Abs Immature Grans 0.01 10^3/uL (0.0-0.06); Absolute Basophil Count 0.04 10^3/uL (0.0-0.2); Absolute Eosinophil Count 0.26 10^3/uL (0.0-0.7); Absolute Lymphocyte Count 0.68 10^3/uL (1.2-3.4); Absolute Monocyte Count 0.39 10^3/uL (0.1-0.8); Absolute Neutrophil Count 2.16 10^3/uL (1.2-6.7); Basophils % 1.1 %; Eosinophils % 7.3 %; HCT 33.6 % (36.0-46.0); HGB 11.1 g/dL (11.2-15.7); Immature Grans % 0.3 %; Lymphocytes % 19.2 %; MCH 33.7 pg (27.0-33.0); MCV 102 fL (80-95); MPV 10.2 fL (8.0-11.0); Neutrophils % 61.1 %; Platelet Count 228 10^3/uL (130-400); RBC 3.29 10^6/uL (3.93-5.22); RDW 15.6 % (11.7-14.6); RDW-SD 58.9 fL; WBC 3.54 10^3/uL (4.4-10.8)
[2024-06-14 10:46] LABS: ALT 29 U/L (14-59); AST 46 U/L (15-37); Albumin 2.9 g/dL (3.4-5.0); Alkaline Phosphatase 105 U/L (46-116); Anion Gap 6.7 mmol/L (3-11); BUN 8 mg/dL (7-18); Bilirubin, Total 0.8 mg/dL (0.2-1.0); CO2 28.3 mmol/L (21.0-32.0); CREATININE 0.5 mg/dL (0.55-1.02); Calcium 9.1 mg/dL (8.5-10.1); Chloride 106 mmol/L (98-107); Glucose 95 mg/dL (74-106); Sodium 141 mmol/L (136-145); Total Protein 5.9 g/dL (6.4-8.2)
[2024-06-17 16:14] LABS: Cancer Ag 15-3 81 U/mL (<30)
== END 2024-07-09 23:59 | disposition home or self-care (01) ==
LOC: INF 09:30
PROVIDERS: PCP Family Medicine; Visit Provider Nurse Practitioner Family
DX: C78.7 Secondary malignant neoplasm of liver and intrahepatic bile duct (principal); Z79.899 Other long term (current) drug therapy; E03.9 Hypothyroidism, unspecified; C50.411 Malignant neoplasm of upper-outer quadrant of right female breast; Z17.0 Estrogen receptor positive status [ER+]
CPT/HCPCS: 36591; 80053; 86300; 84439; 84443; 85025

== ENCOUNTER 2024-07-29 15:16 | Outpatient (REF) | payer MEDICARE, SELFPAY ==
[2024-07-29 14:03] LABS: Bilirubin Negative (Negative); Blood Negative (Negative); Clarity Clear (Clear); Glucose Negative (Negative); Ketones Negative (Negative); Leukocyte Esterase Negative (Negative); Nitrite Negative (Negative); Urobilinogen 0.2 mg/dL (Up to 0.2)
== END 2024-07-29 15:17 | disposition home or self-care (01) ==
LOC: NCHCN 15:16
PROVIDERS: PCP Family Medicine; Visit Provider Family Medicine
DX: R10.9 Unspecified abdominal pain (principal)
CPT/HCPCS: 81003